=== PATIENT | male | born 1940 | race Caucasian/White ===

== ENCOUNTER 2019-04-21 22:15 | Inpatient (IN) ==
[2019-04-21] MEDS ORDERED: AZITHROMYCIN INJ 500 MG in SODIUM CHLORIDE 0.9% 250 ML IV STA (22:42)
[2019-04-21] MEDS ORDERED: methylPREDNISolone SOD SUC 125 MG/2 ML VIAL IV STA (22:42)
[2019-04-21] MEDS ORDERED: ONDANSETRON 4 MG/2 ML VIAL IV STA (22:42)
[2019-04-21] MEDS ORDERED: cefTRIAXone 1,000 MG in SODIUM CHLORIDE 0.9% 100 ML IV STA (22:42)
[2019-04-21] MEDS ORDERED: FUROSEMIDE 40 MG/4 ML VIAL IV STA (22:53)
[2019-04-21] MEDS ORDERED: ALBUTEROL 2.5 MG/3 ML NEB RESP TX SCH (23:00)
[2019-04-22 00:11] LABS: Basophils % 0.4 % (0.0-0.8); Eosinophils # 0.1 10*3/uL (0.0-0.87); Eosinophils % 0.5 % (0.00-10.9); Hematocrit 33.7 VOL% (42.0-52.0); Hemoglobin 9.2 GM/DL (14.0-18.0); Immature Granulocytes % 1.7 %; Immature Granulocytes Absolute 0.19 #; Lymphocytes # 1.3 10*3/uL (1.4-4.0); Lymphocytes % 11.3 % (21.2-54.2); Mean Corpuscular HGB Conc 27.3 GM/DL (32-36); Mean Platelet Volume 11.1 FL (9.6-12.0); Neutrophils % 79.1 % (38.7-73.9); Platelet Count 241 T/CUMM (130-400); Red Blood Count 4.06 MC/CUMM (3.8-5.5); Red Cell Distribution Width 17.4 % (9.3-17.3); White Blood Count 11.1 T/CUMM (4-12)
[2019-04-22 00:18] LABS: Alanine Aminotransferase 20 U/L (16-61); Albumin 2.8 G/DL (3.4-5.0); Alkaline Phosphatase 67 U/L (45-117); Aspartate Amino Transferase 30 U/L (0-37); Bilirubin,Total < 0.39 MG/DL (0.2-1.0); Blood Urea Nitrogen 30 MG/DL (7-18); CKMB % 2.1 %; Calcium 8.9 MG/DL (8.5-10.1); Glucose 146 MG/DL (74-106); Osmolality,Calculated 296.7 MOS/KG (273-304); Total Protein 7.1 G/DL (6.4-8.3); Troponin I 0.021 NG/ML (0.00-0.045)
[2019-04-22 00:22] LABS: PT Patient Result 10.8 SECS
[2019-04-22 01:47] LABS: ABG Base Excess 1.4 MMOL/L (-2.5-2.5); ABG HCO3 25.5 MMOL/L (20-26); ABG PO2 68.2 MM HG (80-95); ABG TCO2 31.9 MMOL/L (23-27)
[2019-04-22 01:50] LABS: ABG PCO2 98.3 MM HG (35-48); ABG PH 7.135 (7.35-7.45)
[2019-04-22] MEDS ORDERED: ETOMIDATE 20 MG/10 ML VIAL IV ONE (02:29)
[2019-04-22] MEDS ORDERED: ROCURONIUM 100 MG/10 ML VIAL IV ONE (02:30)
[2019-04-22] MEDS ORDERED: SODIUM CHLORIDE 0.9% 1,000 ML IV STA (02:34)
[2019-04-22] MEDS ORDERED: ROCURONIUM 100 MG/10 ML VIAL IV STA (02:34)
[2019-04-22] MEDS ORDERED: ETOMIDATE 20 MG/10 ML VIAL IV STA (02:34)
[2019-04-22] MEDS ORDERED: NICOTINE 21 MG/24 HR PATCH TRANSDERM PRN (03:11)
[2019-04-22] MEDS ORDERED: GLUCAGON 1 MG VIAL IM PRN (03:11)
[2019-04-22] MEDS ORDERED: ONDANSETRON 4 MG/2 ML VIAL IV PRN (03:11)
[2019-04-22] MEDS ORDERED: MORPHINE 4 MG/1 ML VIAL IV PRN (03:11)
[2019-04-22] MEDS ORDERED: DEXTROSE 50% 25 GM/50 ML VIAL IV PRN (03:11)
[2019-04-22] MEDS ORDERED: ACETAMINOPHEN 325 MG TABLET PO PRN (03:11)
[2019-04-22 03:36] LABS: Allen Test Positive; Pt O2 Delivery Device Ventilator
[2019-04-22 03:39] LABS: ABG Base Excess 2.8 MMOL/L (-2.5-2.5); ABG Oxygen Saturation 99.8 % (95-100); ABG PCO2 61.9 MM HG (35-48); ABG TCO2 28.4 MMOL/L (23-27)
[2019-04-22] MEDS: PROPOFOL 1,000 MG/100 ML BOTTLE IV SCH ×2 (04:45→17:30)
[2019-04-22] MEDS ORDERED: NOREPINEPHRINE 8 MG in SODIUM CHLORIDE 0.9% 242 ML IV PRN (05:34)
[2019-04-22] MEDS ORDERED: NOREPINEPHRINE 4 MG/4 ML VIAL IV ONE (05:35)
[2019-04-22 06:08] LABS: ABG Base Excess 2.6 MMOL/L (-2.5-2.5); ABG HCO3 26.6 MMOL/L (20-26); ABG PCO2 61.1 MM HG (35-48); ABG TCO2 28.2 MMOL/L (23-27); Allen Test Positive; Pt O2 Delivery Device Ventilator
[2019-04-22 06:09] LABS: Risk Ratio 2.84; Thyroid Stimulating Hormone 0.507 uIU/ml (0.358-3.74)
[2019-04-22] MEDS: PIPERACILLIN/TAZOBACTAM 3,375 MG in SODIUM CHLORIDE 0.9% 100 ML IV SCH ×3 (07:07→19:57)
[2019-04-22] MEDS: ALBUTEROL/IPRATROPIUM 3 ML NEB RESP TX SCH ×3 (07:40→19:24)
[2019-04-22] MEDS ORDERED: cefTRIAXone 1,000 MG in SYRINGE 1 EACH IV SCH (09:00)
[2019-04-22 09:03] LABS: ABG Base Excess 3.1 MMOL/L (-2.5-2.5); ABG HCO3 27.2 MMOL/L (20-26); ABG Oxygen Saturation 97.2 % (95-100); ABG PH 7.359 (7.35-7.45); ABG PO2 92.3 MM HG (80-95); ABG TCO2 27.2 MMOL/L (23-27); Pt O2 Delivery Device Ventilator
[2019-04-22] MEDS: LANSOPRAZOLE ODT 30 MG TABLET PER TUBE SCH (11:00)
[2019-04-22] MEDS: methylPREDNISolone SOD SUC 40 MG/1 ML VIAL IV SCH ×2 (11:00→19:57)
[2019-04-22] MEDS: DILTIAZEM 60 MG TABLET PO SCH ×2 (11:00→22:54)
[2019-04-22] MEDS: FUROSEMIDE 40 MG/4 ML VIAL IV SCH ×2 (11:00→19:57)
[2019-04-22] MEDS: ENOXAPARIN 40 MG/0.4 ML SYRINGE SUBCUT SCH (11:01)
[2019-04-22] MEDS: VANCOMYCIN INJ 2,000 MG in SODIUM CHLORIDE 0.9% 500 ML IV SCH (11:01)
[2019-04-22] MEDS: INSULIN REGULAR 100 UNIT/ML SUBCUT SCH ×4 (11:03→21:40)
[2019-04-22 12:08] LABS: Apearance,Urine CLOUDY (Clear); Bilirubin,Urine Negative (Negative); Blood, Urine Small mg/dL (Negative); Glucose,Urine (UA) Negative (Negative); Ketones,Urine Negative (Negative); Mucus,Urine Occasional /LPF (Occasional); Nitrite,Urine Negative (Negative); Protein,Urine Negative; RBC,Urine 6 /HPF (0-4); Urine Color Yellow (Yellow); Urine Specific Gravity 1.017 (1.001-1.035); Urine Urobilinogen < 2.0 EU/DL (0.2-1.0); WBC,Urine 4 /HPF (0-6)
[2019-04-22] MEDS ORDERED: DIAZEPAM 5 MG TABLET PER TUBE SCH (12:30)
[2019-04-22] MEDS: DESITIN 4OZ/NYSTATIN 15 GRAM MIXTURE PASTE TOP SCH ×2 (19:47→22:38)
[2019-04-22] MEDS: DIAZEPAM 5 MG TABLET PER TUBE SCH ×2 (19:48→22:55)
[2019-04-22] MEDS: AZITHROMYCIN INJ 500 MG in SODIUM CHLORIDE 0.9% 250 ML IV SCH (22:50)
[2019-04-23] MEDS: ALBUTEROL/IPRATROPIUM 3 ML NEB RESP TX SCH ×4 (00:05→20:05)
[2019-04-23] MEDS: INSULIN REGULAR 100 UNIT/ML SUBCUT SCH ×6 (01:14→20:52)
[2019-04-23] MEDS: PIPERACILLIN/TAZOBACTAM 3,375 MG in SODIUM CHLORIDE 0.9% 100 ML IV SCH ×4 (01:30→17:13)
[2019-04-23] MEDS: methylPREDNISolone SOD SUC 40 MG/1 ML VIAL IV SCH ×3 (02:12→17:13)
[2019-04-23 03:35] LABS: ABG Base Excess 7.2 MMOL/L (-2.5-2.5); ABG Oxygen Saturation 98.6 % (95-100); ABG PCO2 44.5 MM HG (35-48); ABG PH 7.462 (7.35-7.45); ABG TCO2 29.4 MMOL/L (23-27); Allen Test Positive; Pt O2 Delivery Device Ventilator
[2019-04-23 04:36] LABS: Basophils % 0.1 % (0.0-0.8); Hemoglobin 8.8 GM/DL (14.0-18.0); Immature Granulocytes % 0.8 %; Lymphocytes # 0.8 10*3/uL (1.4-4.0); Lymphocytes % 6.5 % (21.2-54.2); Mean Corpuscular HGB Conc 29.3 GM/DL (32-36); Mean Corpuscular Volume 78.3 FL (87-102); Mean Platelet Volume 11.4 FL (9.6-12.0); Monocytes % 3.3 % (1.7-12.7); Neutrophils % 89.3 % (38.7-73.9); Platelet Count 285 T/CUMM (130-400); Red Blood Count 3.83 MC/CUMM (3.8-5.5); Red Cell Distribution Width 17.7 % (9.3-17.3); White Blood Count 12.5 T/CUMM (4-12)
[2019-04-23] MEDS: DIAZEPAM 5 MG TABLET PER TUBE SCH ×4 (04:52→20:52)
[2019-04-23 05:02] LABS: Calcium 8.1 MG/DL (8.5-10.1); Osmolality,Calculated 301.7 MOS/KG (273-304)
[2019-04-23 05:07] LABS: Albumin 2.3 G/DL (3.4-5.0); Bilirubin,Total 0.7 MG/DL (0.2-1.0); Calcium 8.4 MG/DL (8.5-10.1); Total Protein 6.5 G/DL (6.4-8.3)
[2019-04-23] MEDS: PROPOFOL 1,000 MG/100 ML BOTTLE IV SCH ×4 (06:30→23:13)
[2019-04-23] MEDS ORDERED: DEXTROSE 50% 25 GM/50 ML VIAL IV PRN (07:29)
[2019-04-23] MEDS ORDERED: GLUCAGON 1 MG VIAL IM PRN (07:29)
[2019-04-23] MEDS: ENOXAPARIN 40 MG/0.4 ML SYRINGE SUBCUT SCH (09:27)
[2019-04-23] MEDS: DILTIAZEM 60 MG TABLET PO SCH ×2 (09:28→20:52)
[2019-04-23] MEDS: FUROSEMIDE 40 MG/4 ML VIAL IV SCH ×2 (09:28→17:12)
[2019-04-23] MEDS: LANSOPRAZOLE ODT 30 MG TABLET PER TUBE SCH (09:28)
[2019-04-23] MEDS: VANCOMYCIN INJ 2,000 MG in SODIUM CHLORIDE 0.9% 500 ML IV SCH ×2 (11:30)
[2019-04-23] MEDS: DESITIN 4OZ/NYSTATIN 15 GRAM MIXTURE PASTE TOP SCH ×2 (14:30→21:42)
[2019-04-23] MEDS: AZITHROMYCIN INJ 500 MG in SODIUM CHLORIDE 0.9% 250 ML IV SCH (20:52)
[2019-04-24] MEDS: ALBUTEROL/IPRATROPIUM 3 ML NEB RESP TX SCH ×4 (00:22→19:33)
[2019-04-24] MEDS: INSULIN REGULAR 100 UNIT/ML SUBCUT SCH ×6 (00:58→20:57)
[2019-04-24] MEDS: methylPREDNISolone SOD SUC 40 MG/1 ML VIAL IV SCH ×3 (00:58→19:35)
[2019-04-24] MEDS: PIPERACILLIN/TAZOBACTAM 3,375 MG in SODIUM CHLORIDE 0.9% 100 ML IV SCH ×3 (00:58→17:30)
[2019-04-24 03:36] LABS: ABG Base Excess 9.6 MMOL/L (-2.5-2.5); ABG HCO3 33.5 MMOL/L (20-26); ABG Oxygen Saturation 97.4 % (95-100); ABG PCO2 42.8 MM HG (35-48); ABG PH 7.511 (7.35-7.45); ABG PO2 104.5 MM HG (80-95); ABG TCO2 34.8 MMOL/L (23-27); Allen Test Positive; Pt O2 Delivery Device Ventilator
[2019-04-24] MEDS: PROPOFOL 1,000 MG/100 ML BOTTLE IV SCH (04:31)
[2019-04-24] MEDS: DIAZEPAM 5 MG TABLET PER TUBE SCH ×4 (04:31→21:07)
[2019-04-24 04:39] LABS: Basophils % 0.1 % (0.0-0.8); Hematocrit 29.1 VOL% (42.0-52.0); Hemoglobin 8.3 GM/DL (14.0-18.0); Immature Granulocytes % 0.5 %; Immature Granulocytes Absolute 0.05 #; Lymphocytes # 1.1 10*3/uL (1.4-4.0); Mean Corpuscular HGB Conc 28.5 GM/DL (32-36); Mean Corpuscular Volume 78.6 FL (87-102); Mean Platelet Volume 10.9 FL (9.6-12.0); Monocytes % 7.9 % (1.7-12.7); Neutrophils % 80.5 % (38.7-73.9); Platelet Count 254 T/CUMM (130-400); Red Cell Distribution Width 17.7 % (9.3-17.3); White Blood Count 9.7 T/CUMM (4-12)
[2019-04-24 04:56] LABS: Calcium 8.3 MG/DL (8.5-10.1); Osmolality,Calculated 307.3 MOS/KG (273-304)
[2019-04-24 05:05] LABS: Anisocytosis 1+; Hypochromasia 1+; Microcytosis 1+; Platelet Estimate Adequate
[2019-04-24] MEDS: VANCOMYCIN INJ 2,000 MG in SODIUM CHLORIDE 0.9% 500 ML IV SCH (11:24)
[2019-04-24] MEDS: ENOXAPARIN 40 MG/0.4 ML SYRINGE SUBCUT SCH (11:24)
[2019-04-24] MEDS: DILTIAZEM 60 MG TABLET PO SCH ×2 (11:29→21:06)
[2019-04-24] MEDS: LANSOPRAZOLE ODT 30 MG TABLET PER TUBE SCH (11:29)
[2019-04-24] MEDS: DESITIN 4OZ/NYSTATIN 15 GRAM MIXTURE PASTE TOP SCH (11:29)
[2019-04-25] MEDS: INSULIN REGULAR 100 UNIT/ML SUBCUT SCH ×6 (00:28→20:39)
[2019-04-25] MEDS: PIPERACILLIN/TAZOBACTAM 3,375 MG in SODIUM CHLORIDE 0.9% 100 ML IV SCH ×3 (00:29→17:01)
[2019-04-25] MEDS: methylPREDNISolone SOD SUC 40 MG/1 ML VIAL IV SCH ×3 (00:29→17:02)
[2019-04-25] MEDS: ALBUTEROL/IPRATROPIUM 3 ML NEB RESP TX SCH ×4 (01:05→19:30)
[2019-04-25 03:59] LABS: ABG Base Excess 8.8 MMOL/L (-2.5-2.5); ABG HCO3 33.8 MMOL/L (20-26); ABG Oxygen Saturation 94.5 % (95-100); ABG PCO2 49.7 MM HG (35-48); ABG PH 7.451 (7.35-7.45); ABG PO2 82.3 MM HG (80-95); ABG TCO2 35.4 MMOL/L (23-27); Allen Test Positive; Pt O2 Delivery Device Ventilator
[2019-04-25] MEDS: DESITIN 4OZ/NYSTATIN 15 GRAM MIXTURE PASTE TOP SCH ×3 (04:32→20:43)
[2019-04-25] MEDS: DIAZEPAM 5 MG TABLET PER TUBE SCH ×2 (04:47→08:52)
[2019-04-25] MEDS: PROPOFOL 1,000 MG/100 ML BOTTLE IV SCH ×2 (05:04→11:09)
[2019-04-25] MEDS: VANCOMYCIN INJ 2,000 MG in SODIUM CHLORIDE 0.9% 500 ML IV SCH (05:11)
[2019-04-25 06:01] LABS: Calcium 8.4 MG/DL (8.5-10.1); Osmolality,Calculated 311.3 MOS/KG (273-304); Prealbumin 16.7 MG/DL (20-40)
[2019-04-25 06:15] LABS: Basophils % 0.1 % (0.0-0.8); Hematocrit 30.9 VOL% (42.0-52.0); Immature Granulocytes % 1.9 %; Immature Granulocytes Absolute 0.16 #; Lymphocytes # 0.4 10*3/uL (1.4-4.0); Lymphocytes % 5.2 % (21.2-54.2); Mean Corpuscular HGB Conc 28.5 GM/DL (32-36); Mean Corpuscular Volume 80.1 FL (87-102); Mean Platelet Volume 11.6 FL (9.6-12.0); Monocytes % 2.9 % (1.7-12.7); Neutrophils % 89.9 % (38.7-73.9); Platelet Count 264 T/CUMM (130-400); Red Blood Count 3.86 MC/CUMM (3.8-5.5); Red Cell Distribution Width 18.1 % (9.3-17.3); White Blood Count 8.5 T/CUMM (4-12)
[2019-04-25 06:18] LABS: Hemoglobin 8.8 GM/DL (14.0-18.0)
[2019-04-25 06:20] LABS: Platelet Estimate Adequate; Polychromasia Few
[2019-04-25] MEDS ORDERED: LIDOCAINE 1% 20 ML VIAL MISC INJ ONE (07:30)
[2019-04-25] MEDS ORDERED: LIDOCAINE 2% 20 ML VIAL RESP TX ONE (07:30)
[2019-04-25] MEDS ORDERED: MIDAZOLAM 2 MG/2 ML VIAL IV ONE (07:30)
[2019-04-25] MEDS ORDERED: MIDAZOLAM 2 MG/2 ML VIAL ONE (07:33)
[2019-04-25] MEDS: ENOXAPARIN 40 MG/0.4 ML SYRINGE SUBCUT SCH (08:30)
[2019-04-25] MEDS: LANSOPRAZOLE ODT 30 MG TABLET PER TUBE SCH (08:31)
[2019-04-25] MEDS: DILTIAZEM 60 MG TABLET PO SCH ×2 (08:31→20:38)
[2019-04-25] MEDS ORDERED: FUROSEMIDE 20 MG TABLET PO PRN (15:05)
[2019-04-25] MEDS: APIXABAN 2.5 MG TABLET PO SCH (20:38)
[2019-04-26] MEDS: ALBUTEROL/IPRATROPIUM 3 ML NEB RESP TX SCH ×4 (00:10→19:40)
[2019-04-26] MEDS: INSULIN REGULAR 100 UNIT/ML SUBCUT SCH ×6 (00:58→21:05)
[2019-04-26] MEDS: methylPREDNISolone SOD SUC 40 MG/1 ML VIAL IV SCH ×3 (00:59→17:07)
[2019-04-26] MEDS: PIPERACILLIN/TAZOBACTAM 3,375 MG in SODIUM CHLORIDE 0.9% 100 ML IV SCH ×3 (01:05→17:09)
[2019-04-26 04:27] LABS: ABG Base Excess 6.3 MMOL/L (-2.5-2.5); ABG HCO3 29.8 MMOL/L (20-26); ABG Oxygen Saturation 82.8 % (95-100); ABG PCO2 49.4 MM HG (35-48); ABG PO2 52.3 MM HG (80-95); ABG TCO2 28.5 MMOL/L (23-27)
[2019-04-26] MEDS: VANCOMYCIN INJ 2,000 MG in SODIUM CHLORIDE 0.9% 500 ML IV SCH ×2 (04:58→22:35)
[2019-04-26 05:42] LABS: Calcium 8.6 MG/DL (8.5-10.1); Osmolality,Calculated 302.6 MOS/KG (273-304)
[2019-04-26 06:18] LABS: Basophils % 0.2 % (0.0-0.8); Hematocrit 30.7 VOL% (42.0-52.0); Hemoglobin 8.7 GM/DL (14.0-18.0); Immature Granulocytes % 2.3 %; Immature Granulocytes Absolute 0.23 #; Lymphocytes # 0.6 10*3/uL (1.4-4.0); Lymphocytes % 5.9 % (21.2-54.2); Mean Corpuscular HGB Conc 28.3 GM/DL (32-36); Mean Corpuscular Volume 80.4 FL (87-102); Mean Platelet Volume 11.5 FL (9.6-12.0); Monocytes % 4.9 % (1.7-12.7); Neutrophils % 86.7 % (38.7-73.9); Platelet Count 261 T/CUMM (130-400); Red Blood Count 3.82 MC/CUMM (3.8-5.5); Red Cell Distribution Width 17.7 % (9.3-17.3); White Blood Count 10.1 T/CUMM (4-12)
[2019-04-26 06:20] LABS: Lymphocytes 4 % (20-55); Segmented Neutrophils 93 % (50-85); Total Cells Counted 100
[2019-04-26 06:21] LABS: Hypochromasia 1+; Platelet Estimate Adequate
[2019-04-26] MEDS: DILTIAZEM 60 MG TABLET PO SCH ×2 (08:42→21:08)
[2019-04-26] MEDS: APIXABAN 2.5 MG TABLET PO SCH ×2 (08:43→21:08)
[2019-04-26] MEDS: LISINOPRIL 20 MG TABLET PO SCH (08:43)
[2019-04-26] MEDS: LANSOPRAZOLE ODT 30 MG TABLET PER TUBE SCH (08:43)
[2019-04-26] MEDS: DESITIN 4OZ/NYSTATIN 15 GRAM MIXTURE PASTE TOP SCH ×2 (09:30→21:09)
[2019-04-27] MEDS: INSULIN REGULAR 100 UNIT/ML SUBCUT SCH ×7 (00:26→23:31)
[2019-04-27] MEDS: ALBUTEROL/IPRATROPIUM 3 ML NEB RESP TX SCH ×4 (00:50→18:57)
[2019-04-27] MEDS: methylPREDNISolone SOD SUC 40 MG/1 ML VIAL IV SCH ×3 (01:38→16:21)
[2019-04-27] MEDS: PIPERACILLIN/TAZOBACTAM 3,375 MG in SODIUM CHLORIDE 0.9% 100 ML IV SCH ×2 (01:40→08:04)
[2019-04-27 04:45] LABS: ABG Base Excess 4.1 MMOL/L (-2.5-2.5); ABG HCO3 27.9 MMOL/L (20-26); ABG Oxygen Saturation 86.1 % (95-100); ABG PCO2 49.3 MM HG (35-48); ABG PO2 56.2 MM HG (80-95); ABG TCO2 27.4 MMOL/L (23-27); Allen Test Positive
[2019-04-27 06:14] LABS: Calcium 8.8 MG/DL (8.5-10.1); Osmolality,Calculated 300.8 MOS/KG (273-304)
[2019-04-27 06:21] LABS: Basophils % 0.2 % (0.0-0.8); Hematocrit 32.6 VOL% (42.0-52.0); Immature Granulocytes % 4.9 %; Immature Granulocytes Absolute 0.65 #; Lymphocytes # 0.7 10*3/uL (1.4-4.0); Lymphocytes % 5.5 % (21.2-54.2); Mean Corpuscular HGB Conc 28.2 GM/DL (32-36); Mean Corpuscular Volume 80.1 FL (87-102); Mean Platelet Volume 11.4 FL (9.6-12.0); Monocytes % 3.1 % (1.7-12.7); Neutrophils % 86.3 % (38.7-73.9); Platelet Count 270 T/CUMM (130-400); Red Blood Count 4.07 MC/CUMM (3.8-5.5); Red Cell Distribution Width 17.7 % (9.3-17.3); White Blood Count 13.4 T/CUMM (4-12)
[2019-04-27 06:22] LABS: Hemoglobin 9.2 GM/DL (14.0-18.0)
[2019-04-27 06:31] LABS: Lymphocytes 5 % (20-55); Segmented Neutrophils 95 % (50-85); Total Cells Counted 100
[2019-04-27 06:32] LABS: Hypochromasia Slight; Platelet Estimate Normal; Polychromasia Few
[2019-04-27] MEDS: DILTIAZEM 60 MG TABLET PO SCH ×2 (08:04→23:27)
[2019-04-27] MEDS: LANSOPRAZOLE ODT 30 MG TABLET PER TUBE SCH (08:04)
[2019-04-27] MEDS: APIXABAN 2.5 MG TABLET PO SCH ×2 (08:04→23:26)
[2019-04-27] MEDS: LISINOPRIL 20 MG TABLET PO SCH (08:05)
[2019-04-27] MEDS: DESITIN 4OZ/NYSTATIN 15 GRAM MIXTURE PASTE TOP SCH (08:05)
[2019-04-27] MEDS: VANCOMYCIN INJ 2,000 MG in SODIUM CHLORIDE 0.9% 500 ML IV SCH (16:21)
[2019-04-27] MEDS: INSULIN GLARGINE 100 UNIT/ML SUBCUT SCH (23:27)
[2019-04-28] MEDS: ALBUTEROL/IPRATROPIUM 3 ML NEB RESP TX SCH ×4 (00:43→18:54)
[2019-04-28] MEDS: DESITIN 4OZ/NYSTATIN 15 GRAM MIXTURE PASTE TOP SCH ×3 (01:33→22:25)
[2019-04-28] MEDS: methylPREDNISolone SOD SUC 40 MG/1 ML VIAL IV SCH ×3 (02:29→16:31)
[2019-04-28] MEDS: INSULIN REGULAR 100 UNIT/ML SUBCUT SCH ×5 (04:21→22:24)
[2019-04-28 07:47] LABS: Basophils % 0.3 % (0.0-0.8); Hematocrit 34.3 VOL% (42.0-52.0); Immature Granulocytes % 4.6 %; Immature Granulocytes Absolute 0.67 #; Lymphocytes # 0.8 10*3/uL (1.4-4.0); Lymphocytes % 5.1 % (21.2-54.2); Mean Corpuscular Volume 80.3 FL (87-102); Mean Platelet Volume 11.8 FL (9.6-12.0); Monocytes % 2.8 % (1.7-12.7); NRBC # 0.04 10*3/uL; Neutrophils % 87.2 % (38.7-73.9); Platelet Count 269 T/CUMM (130-400); Red Blood Count 4.27 MC/CUMM (3.8-5.5); Red Cell Distribution Width 17.8 % (9.3-17.3); White Blood Count 14.6 T/CUMM (4-12)
[2019-04-28 07:48] LABS: Hemoglobin 9.6 GM/DL (14.0-18.0)
[2019-04-28 07:52] LABS: Hypochromasia 1+; Lymphocytes 3 % (20-55); Microcytosis 1+; Myelocytes 1 %; Segmented Neutrophils 93 % (50-85); Total Cells Counted 100
[2019-04-28 07:53] LABS: Platelet Estimate Normal
[2019-04-28 07:59] LABS: Calcium 8.2 MG/DL (8.5-10.1); Osmolality,Calculated 290.4 MOS/KG (273-304)
[2019-04-28] MEDS: APIXABAN 2.5 MG TABLET PO SCH ×2 (08:13→22:23)
[2019-04-28] MEDS: DILTIAZEM 60 MG TABLET PO SCH ×2 (08:13→22:23)
[2019-04-28] MEDS: LISINOPRIL 20 MG TABLET PO SCH (08:13)
[2019-04-28] MEDS: LANSOPRAZOLE ODT 30 MG TABLET PER TUBE SCH (08:14)
[2019-04-28] MEDS ORDERED: VANCOMYCIN INJ 2,000 MG in SODIUM CHLORIDE 0.9% 500 ML IV SCH (16:00)
[2019-04-28] MEDS: INSULIN GLARGINE 100 UNIT/ML SUBCUT SCH (22:23)
[2019-04-29] MEDS: INSULIN REGULAR 100 UNIT/ML SUBCUT SCH ×4 (01:11→11:45)
[2019-04-29] MEDS: methylPREDNISolone SOD SUC 40 MG/1 ML VIAL IV SCH ×2 (01:11→08:31)
[2019-04-29] MEDS: ALBUTEROL/IPRATROPIUM 3 ML NEB RESP TX SCH ×3 (01:29→13:25)
[2019-04-29 05:41] LABS: Basophils % 0.1 % (0.0-0.8); Immature Granulocytes % 4.2 %; Lymphocytes # 0.6 10*3/uL (1.4-4.0); Lymphocytes % 4.4 % (21.2-54.2); Mean Corpuscular HGB Conc 28.7 GM/DL (32-36); Mean Corpuscular Volume 78.8 FL (87-102); Mean Platelet Volume 11.5 FL (9.6-12.0); Monocytes % 3.8 % (1.7-12.7); NRBC # 0.03 10*3/uL; Neutrophils % 87.5 % (38.7-73.9); Platelet Count 293 T/CUMM (130-400); Red Blood Count 4.11 MC/CUMM (3.8-5.5); White Blood Count 14.3 T/CUMM (4-12)
[2019-04-29 06:06] LABS: Hemoglobin 9.3 GM/DL (14.0-18.0)
[2019-04-29 06:09] LABS: Band Neutrophils 1 % (0-10); Calcium 8.2 MG/DL (8.5-10.1); Hypochromasia 1+; Lymphocytes 6 % (20-55); Osmolality,Calculated 291.4 MOS/KG (273-304); Platelet Estimate Adequate; Segmented Neutrophils 90 % (50-85); Total Cells Counted 100
[2019-04-29 06:10] LABS: Microcytosis 1+
[2019-04-29] MEDS: DILTIAZEM 60 MG TABLET PO SCH (08:30)
[2019-04-29] MEDS: LISINOPRIL 20 MG TABLET PO SCH (08:30)
[2019-04-29] MEDS: APIXABAN 2.5 MG TABLET PO SCH (08:31)
[2019-04-29] MEDS: LANSOPRAZOLE ODT 30 MG TABLET PER TUBE SCH (08:31)
[2019-04-29] MEDS: DESITIN 4OZ/NYSTATIN 15 GRAM MIXTURE PASTE TOP SCH (08:33)
[2019-04-29 11:35] VITALS: BP 141/57
== END 2019-04-29 15:14 | disposition home health service (06) | DRG 208 ==
LOC: EDBD → EDUNIT# → N.ED 22:15 → SUATTDRO 04-22 03:11 → N.EDINP 04-22 03:11 → N.ICU 04-22 03:50 → N.5E 04-25 16:15
PROVIDERS: ADMIT Internal Medicine; ATTEND Internal Medicine Nephrology

== ENCOUNTER 2019-09-19 11:39 | Inpatient (IN) ==
[2019-09-19] MEDS ORDERED: ONDANSETRON 4 MG/2 ML VIAL IV STA (12:13)
[2019-09-19] MEDS ORDERED: ASPIRIN 325 MG TABLET PO STA (12:13)
[2019-09-19] MEDS ORDERED: methylPREDNISolone SOD SUC 125 MG/2 ML VIAL IV STA (12:13)
[2019-09-19] MEDS ORDERED: FUROSEMIDE 100 MG/10 ML VIAL IV STA (12:13)
[2019-09-19 12:30] LABS: INR 1.1; PT Patient Result 11.6 SECS (9.6-12.2)
[2019-09-19] MEDS ORDERED: ALBUTEROL 2.5 MG/3 ML NEB RESP TX SCH (12:30)
[2019-09-19 12:49] LABS: Basophils % 0.3 % (0.0-0.8); Eosinophils % 0.4 % (0.00-10.9); Hematocrit 20.6 VOL% (42.0-52.0); Immature Granulocytes Absolute 0.09 #; Lymphocytes # 1.6 10*3/uL (1.4-4.0); Lymphocytes % 16.8 % (21.2-54.2); Mean Corpuscular HGB Conc 26.7 GM/DL (32-36); Monocytes % 7.4 % (1.7-12.7); NRBC # 0.03 10*3/uL; Neutrophils % 74.1 % (38.7-73.9); Platelet Count 264 T/CUMM (130-400); Red Blood Count 2.82 MC/CUMM (3.8-5.5); White Blood Count 9.2 T/CUMM (4-12)
[2019-09-19 12:52] LABS: Alanine Aminotransferase 11 U/L (16-61); Albumin 2.1 G/DL (3.4-5.0); Alkaline Phosphatase 59 U/L (45-117); Aspartate Amino Transferase 7 U/L (0-37); Bilirubin,Total < 0.39 MG/DL (0.2-1.0); Blood Urea Nitrogen 26 MG/DL (7-18); Calcium 8.4 MG/DL (8.5-10.1); Estimated Glom Filtration Rate 76 ML/MIN; Glucose 165 MG/DL (74-106); Hemoglobin 5.5 GM/DL (14.0-18.0); Osmolality,Calculated 291.1 MOS/KG (273-304); Total Protein 5.9 G/DL (6.4-8.3)
[2019-09-19 12:53] LABS: Anisocytosis 1+; Hypochromasia Slight; Platelet Estimate Normal; Polychromasia 1+
[2019-09-19] MEDS ORDERED: PIPERACILLIN/TAZOBACTAM 3,375 MG in SODIUM CHLORIDE 0.9% 100 ML IV STA (12:53)
[2019-09-19 12:57] LABS: ABG Base Excess 7.5 MMOL/L (-2.5-2.5); ABG HCO3 31.3 MMOL/L (20-26); ABG Oxygen Saturation 92.6 % (95-100); ABG PCO2 61.3 MM HG (35-48); ABG PH 7.353 (7.35-7.45); ABG PO2 66.2 MM HG (80-95); ABG TCO2 32.9 MMOL/L (23-27)
[2019-09-19 13:34] LABS: Basophils % 0.4 % (0.0-0.8); Eosinophils % 0.3 % (0.00-10.9); Hematocrit 20.4 VOL% (42.0-52.0); Immature Granulocytes % 1.1 %; Immature Granulocytes Absolute 0.11 #; Lymphocytes # 1.9 10*3/uL (1.4-4.0); Lymphocytes % 19.5 % (21.2-54.2); Mean Corpuscular HGB Conc 26.5 GM/DL (32-36); Mean Corpuscular Volume 74.7 FL (87-102); Mean Platelet Volume 10.6 FL (9.6-12.0); Monocytes % 7.6 % (1.7-12.7); NRBC # 0.02 10*3/uL; Neutrophils % 71.1 % (38.7-73.9); Platelet Count 271 T/CUMM (130-400); Red Blood Count 2.73 MC/CUMM (3.8-5.5); Red Cell Distribution Width 18.3 % (9.3-17.3); White Blood Count 9.8 T/CUMM (4-12)
[2019-09-19 13:37] LABS: Hemoglobin 5.4 GM/DL (14.0-18.0)
[2019-09-19 13:53] LABS: Hypochromasia Slight; Microcytosis Slight
[2019-09-19 13:54] LABS: Ovalocytes Few; Platelet Estimate Normal; Tear Drop Cells Slight
[2019-09-19] MEDS ORDERED: SODIUM CHLORIDE 0.9% 1,000 ML IV PRN ×2 (14:12→14:57)
[2019-09-19] MEDS ORDERED: GLUCAGON 1 MG VIAL IM PRN (14:14)
[2019-09-19] MEDS ORDERED: ONDANSETRON 4 MG/2 ML VIAL IV PRN (14:14)
[2019-09-19] MEDS ORDERED: ACETAMINOPHEN 325 MG TABLET PO PRN (14:14)
[2019-09-19] MEDS ORDERED: DEXTROSE 50% 25 GM/50 ML VIAL IV PRN (14:14)
[2019-09-19] MEDS ORDERED: ALBUTEROL/IPRATROPIUM 3 ML NEB RESP TX PRN (14:19)
[2019-09-19] MEDS ORDERED: ALBUTEROL 2.5 MG/3 ML NEB RESP TX PRN (15:16)
[2019-09-19] MEDS: HYDROCORTISONE 100 MG VIAL IV SCH (16:49)
[2019-09-19] MEDS: BENZONATATE 100 MG CAPSULE PO SCH ×2 (16:49→22:41)
[2019-09-19] MEDS: INSULIN REGULAR 100 UNIT/ML SUBCUT SCH ×2 (16:49→22:40)
[2019-09-19] MEDS: VANCOMYCIN INJ 2,000 MG in SODIUM CHLORIDE 0.9% 500 ML IV SCH (17:38)
[2019-09-19] MEDS: ALBUTEROL 2.5 MG/3 ML NEB RESP TX SCH (19:49)
[2019-09-19] MEDS: PANTOPRAZOLE 40 MG VIAL IV SCH (22:39)
[2019-09-19] MEDS: TAMSULOSIN 0.4 MG CAPSULE PO SCH (22:41)
[2019-09-19] MEDS ORDERED: FUROSEMIDE 40 MG/4 ML VIAL IV ONE (22:57)
[2019-09-20] MEDS: HYDROCORTISONE 100 MG VIAL IV SCH ×3 (01:12→16:42)
[2019-09-20] MEDS: PIPERACILLIN/TAZOBACTAM 3,375 MG in SODIUM CHLORIDE 0.9% 100 ML IV SCH ×3 (01:13→15:09)
[2019-09-20 01:22] LABS: Calcium 8.4 MG/DL (8.5-10.1); Osmolality,Calculated 291.5 MOS/KG (273-304)
[2019-09-20] MEDS: ALBUTEROL 2.5 MG/3 ML NEB RESP TX SCH ×4 (01:40→19:30)
[2019-09-20 02:36] LABS: Apearance,Urine Slightly Hazy (Clear); Bilirubin,Urine Negative (Negative); Blood, Urine Large mg/dL (Negative); Glucose,Urine (UA) 50 mg/dL (Negative); Ketones,Urine Negative (Negative); Mucus,Urine Occasional /LPF (Occasional); Nitrite,Urine Negative (Negative); Protein,Urine 100 MG/DL; RBC,Urine 2505 /HPF (0-4); Urine Color Red (Yellow); Urine Specific Gravity 1.018 (1.001-1.035); Urine Urobilinogen < 2.0 EU/DL (0.2-1.0); WBC,Urine 61 /HPF (0-6)
[2019-09-20] MEDS ORDERED: FUROSEMIDE 40 MG/4 ML VIAL ONE (06:01)
[2019-09-20 08:24] LABS: Basophils % 0.1 % (0.0-0.8); Eosinophils % 0.2 % (0.00-10.9); Hematocrit 27.3 VOL% (42.0-52.0); Immature Granulocytes % 1.7 %; Immature Granulocytes Absolute 0.19 #; Lymphocytes # 0.8 10*3/uL (1.4-4.0); Lymphocytes % 6.7 % (21.2-54.2); Mean Corpuscular HGB Conc 28.6 GM/DL (32-36); Mean Platelet Volume 11.2 FL (9.6-12.0); Monocytes % 4.7 % (1.7-12.7); NRBC # 0.02 10*3/uL; Neutrophils % 86.6 % (38.7-73.9); Platelet Count 250 T/CUMM (130-400); Red Cell Distribution Width 18.7 % (9.3-17.3); White Blood Count 11.2 T/CUMM (4-12)
[2019-09-20 08:25] LABS: Hemoglobin 7.8 GM/DL (14.0-18.0)
[2019-09-20 08:45] LABS: Hypochromasia 1+; Platelet Estimate Adequate
[2019-09-20 08:46] LABS: Microcytosis Slight
[2019-09-20] MEDS ORDERED: PANTOPRAZOLE 40 MG TABLET PO SCH (09:00)
[2019-09-20] MEDS: INSULIN REGULAR 100 UNIT/ML SUBCUT SCH ×4 (09:18→21:34)
[2019-09-20] MEDS: BENZONATATE 100 MG CAPSULE PO SCH ×3 (09:19→21:32)
[2019-09-20] MEDS: PANTOPRAZOLE 40 MG VIAL IV SCH ×2 (09:19→21:31)
[2019-09-20 10:31] LABS: CKMB % 7.1 %
[2019-09-20 10:33] LABS: Troponin I 4.17 NG/ML (0.00-0.045)
[2019-09-20] MEDS: NEBIVOLOL 5 MG TABLET PO SCH (10:42)
[2019-09-20] MEDS: AZITHROMYCIN INJ 500 MG in SODIUM CHLORIDE 0.9% 250 ML IV SCH (13:15)
[2019-09-20 14:10] LABS: Basophils % 0.1 % (0.0-0.8); Hemoglobin 7.6 GM/DL (14.0-18.0); Immature Granulocytes % 1.2 %; Red Blood Count 3.36 MC/CUMM (3.8-5.5)
[2019-09-20 14:33] LABS: Immature Granulocytes Absolute 0.14 #; Lymphocytes # 0.7 10*3/uL (1.4-4.0); Lymphocytes % 5.7 % (21.2-54.2); Mean Corpuscular HGB Conc 28.1 GM/DL (32-36); Mean Corpuscular Volume 80.4 FL (87-102); Mean Platelet Volume 10.7 FL (9.6-12.0); Monocytes % 5.3 % (1.7-12.7); NRBC # 0.04 10*3/uL; Neutrophils % 87.7 % (38.7-73.9); Platelet Count 233 T/CUMM (130-400); Red Cell Distribution Width 18.9 % (9.3-17.3)
[2019-09-20] MEDS ORDERED: SODIUM CHLORIDE 0.9% 1,000 ML IV PRN (15:04)
[2019-09-20] MEDS: ASPIRIN CHEW 81 MG TABLET PO SCH (15:09)
[2019-09-20 15:39] LABS: Microcytosis 1+; Ovalocytes Few; Platelet Estimate Normal
[2019-09-20 15:40] LABS: Hypochromasia 1+; Target Cells Few
[2019-09-20] MEDS: SUCRALFATE 1 GM TABLET PO SCH ×2 (16:42→21:32)
[2019-09-20] MEDS: FUROSEMIDE 40 MG/4 ML VIAL IV SCH (16:42)
[2019-09-20] MEDS: BUDESONIDE 0.5 MG/2 ML NEB RESP TX SCH ×2 (17:37→19:30)
[2019-09-20] MEDS: TAMSULOSIN 0.4 MG CAPSULE PO SCH (21:32)
[2019-09-20] MEDS ORDERED: FUROSEMIDE 40 MG/4 ML VIAL IV ONE (22:57)
[2019-09-21] MEDS: HYDROCORTISONE 100 MG VIAL IV SCH ×3 (00:22→16:46)
[2019-09-21] MEDS: PIPERACILLIN/TAZOBACTAM 3,375 MG in SODIUM CHLORIDE 0.9% 100 ML IV SCH ×4 (00:22→23:15)
[2019-09-21 00:38] LABS: Hematocrit 28.2 VOL% (42.0-52.0); Hemoglobin 8.2 GM/DL (14.0-18.0)
[2019-09-21] MEDS: ALBUTEROL 2.5 MG/3 ML NEB RESP TX SCH ×4 (02:41→20:51)
[2019-09-21] MEDS: VANCOMYCIN INJ 2,000 MG in SODIUM CHLORIDE 0.9% 500 ML IV SCH (04:31)
[2019-09-21 05:58] LABS: Basophils % 0.1 % (0.0-0.8); Hematocrit 29.5 VOL% (42.0-52.0); Hemoglobin 8.7 GM/DL (14.0-18.0); Immature Granulocytes % 1.1 %; Immature Granulocytes Absolute 0.14 #; Lymphocytes # 0.8 10*3/uL (1.4-4.0); Lymphocytes % 6.1 % (21.2-54.2); Mean Corpuscular HGB Conc 29.5 GM/DL (32-36); Mean Corpuscular Volume 78.9 FL (87-102); Mean Platelet Volume 11.3 FL (9.6-12.0); Monocytes % 5.2 % (1.7-12.7); NRBC # 0.03 10*3/uL; Neutrophils % 87.5 % (38.7-73.9); Platelet Count 248 T/CUMM (130-400); Red Blood Count 3.74 MC/CUMM (3.8-5.5); Red Cell Distribution Width 19.9 % (9.3-17.3); White Blood Count 12.2 T/CUMM (4-12)
[2019-09-21 06:28] LABS: % Iron Saturation 5.2 % (18-50); Calcium 8.5 MG/DL (8.5-10.1); Osmolality,Calculated 302.6 MOS/KG (273-304)
[2019-09-21] MEDS: BUDESONIDE 0.5 MG/2 ML NEB RESP TX SCH ×2 (07:42→20:51)
[2019-09-21] MEDS: SUCRALFATE 1 GM TABLET PO SCH ×4 (07:53→21:01)
[2019-09-21] MEDS: INSULIN REGULAR 100 UNIT/ML SUBCUT SCH ×4 (07:53→21:02)
[2019-09-21] MEDS: FUROSEMIDE 40 MG/4 ML VIAL IV SCH ×2 (07:54→16:43)
[2019-09-21] MEDS: BENZONATATE 100 MG CAPSULE PO SCH ×3 (09:23→21:01)
[2019-09-21] MEDS: PANTOPRAZOLE 40 MG VIAL IV SCH ×2 (09:24→21:01)
[2019-09-21] MEDS: NEBIVOLOL 5 MG TABLET PO SCH (09:24)
[2019-09-21] MEDS: ASPIRIN CHEW 81 MG TABLET PO SCH (09:24)
[2019-09-21] MEDS: AZITHROMYCIN INJ 500 MG in SODIUM CHLORIDE 0.9% 250 ML IV SCH (14:26)
[2019-09-21] MEDS: SERTRALINE 25 MG TABLET PO SCH (18:31)
[2019-09-21] MEDS: DILTIAZEM 60 MG TABLET PO SCH (21:01)
[2019-09-21] MEDS: TAMSULOSIN 0.4 MG CAPSULE PO SCH (21:01)
[2019-09-22] MEDS: HYDROCORTISONE 100 MG VIAL IV SCH ×3 (00:16→16:31)
[2019-09-22] MEDS: ALBUTEROL 2.5 MG/3 ML NEB RESP TX SCH ×4 (01:49→20:19)
[2019-09-22] MEDS: VANCOMYCIN INJ 2,000 MG in SODIUM CHLORIDE 0.9% 500 ML IV SCH (05:39)
[2019-09-22 05:51] LABS: Calcium 8.3 MG/DL (8.5-10.1)
[2019-09-22 06:02] LABS: Basophils % 0.1 % (0.0-0.8); Hematocrit 29.4 VOL% (42.0-52.0); Hemoglobin 8.5 GM/DL (14.0-18.0); Immature Granulocytes % 1.7 %; Immature Granulocytes Absolute 0.19 #; Lymphocytes # 0.8 10*3/uL (1.4-4.0); Lymphocytes % 7.1 % (21.2-54.2); Mean Corpuscular HGB Conc 28.9 GM/DL (32-36); Mean Corpuscular Volume 79.5 FL (87-102); Mean Platelet Volume 10.7 FL (9.6-12.0); Monocytes % 5.3 % (1.7-12.7); NRBC # 0.02 10*3/uL; Neutrophils % 85.8 % (38.7-73.9); Platelet Count 228 T/CUMM (130-400); Red Cell Distribution Width 20.9 % (9.3-17.3); White Blood Count 11.3 T/CUMM (4-12)
[2019-09-22 06:16] LABS: Hypochromasia 1+; Platelet Estimate Adequate
[2019-09-22 06:17] LABS: Microcytosis Slight
[2019-09-22] MEDS: PIPERACILLIN/TAZOBACTAM 3,375 MG in SODIUM CHLORIDE 0.9% 100 ML IV SCH ×2 (06:36→16:29)
[2019-09-22] MEDS: BUDESONIDE 0.5 MG/2 ML NEB RESP TX SCH ×2 (08:16→20:18)
[2019-09-22] MEDS: INSULIN REGULAR 100 UNIT/ML SUBCUT SCH ×4 (08:38→23:48)
[2019-09-22] MEDS: FUROSEMIDE 40 MG/4 ML VIAL IV SCH ×2 (08:42→16:29)
[2019-09-22] MEDS: PANTOPRAZOLE 40 MG VIAL IV SCH ×2 (08:45→23:48)
[2019-09-22] MEDS ORDERED: LIDOCAINE 2% 5 ML VIAL ONE (09:00)
[2019-09-22] MEDS ORDERED: ETOMIDATE 20 MG/10 ML VIAL IV ONE (09:00)
[2019-09-22] MEDS ORDERED: propofoL 200 MG/20 ML VIAL IV ONE (09:00)
[2019-09-22] MEDS: LACTATED RINGERS 1,000 ML IV SCH (09:49)
[2019-09-22] MEDS ORDERED: ALBUTEROL/IPRATROPIUM 3 ML NEB RESP TX ONE (10:35)
[2019-09-22] MEDS: SUCRALFATE 1 GM TABLET PO SCH ×4 (13:19→23:47)
[2019-09-22] MEDS: AZITHROMYCIN INJ 500 MG in SODIUM CHLORIDE 0.9% 250 ML IV SCH (13:29)
[2019-09-22] MEDS: DILTIAZEM 60 MG TABLET PO SCH ×2 (13:29→22:45)
[2019-09-22] MEDS: ASPIRIN CHEW 81 MG TABLET PO SCH (13:30)
[2019-09-22] MEDS: SERTRALINE 25 MG TABLET PO SCH (13:30)
[2019-09-22] MEDS: BENZONATATE 100 MG CAPSULE PO SCH ×3 (13:30→23:48)
[2019-09-22] MEDS: NEBIVOLOL 5 MG TABLET PO SCH (13:30)
[2019-09-22] MEDS: FLUCONAZOLE 100 MG TABLET PO SCH (13:30)
[2019-09-22 20:21] LABS: Basophils % 0.2 % (0.0-0.8); White Blood Count 18.4 T/CUMM (4-12)
[2019-09-22 20:42] LABS: Alanine Aminotransferase 17 U/L (16-61); Albumin 1.9 G/DL (3.4-5.0); Alkaline Phosphatase 53 U/L (45-117); Aspartate Amino Transferase 12 U/L (0-37); Blood Urea Nitrogen 41 MG/DL (7-18); Calcium 7.9 MG/DL (8.5-10.1); Estimated Glom Filtration Rate 61 ML/MIN; Glucose 235 MG/DL (74-106); Osmolality,Calculated 305.7 MOS/KG (273-304); Total Protein 6.2 G/DL (6.4-8.3)
[2019-09-22 20:43] LABS: Hematocrit 33.4 VOL% (42.0-52.0); Immature Granulocytes % 5.3 %; Immature Granulocytes Absolute 0.97 #; Lymphocytes # 3.2 10*3/uL (1.4-4.0); Lymphocytes % 17.2 % (21.2-54.2); Mean Corpuscular HGB Conc 28.1 GM/DL (32-36); Mean Corpuscular Volume 80.5 FL (87-102); Mean Platelet Volume 11.1 FL (9.6-12.0); Monocytes % 5.7 % (1.7-12.7); Neutrophils % 71.6 % (38.7-73.9); Platelet Count 297 T/CUMM (130-400); Red Blood Count 4.15 MC/CUMM (3.8-5.5); Red Cell Distribution Width 21.3 % (9.3-17.3)
[2019-09-22 20:46] LABS: Hemoglobin 9.4 GM/DL (14.0-18.0)
[2019-09-22 20:49] LABS: Lymphocytes 13 % (20-55); Segmented Neutrophils 83 % (50-85); Total Cells Counted 100
[2019-09-22 20:50] LABS: Hypochromasia Slight; Microcytosis Slight; Platelet Estimate Normal
[2019-09-22 21:11] LABS: ABG Base Excess 7.7 MMOL/L (-2.5-2.5); ABG HCO3 31.5 MMOL/L (20-26); ABG Oxygen Saturation 98.5 % (95-100); ABG PH 7.309 (7.35-7.45); ABG TCO2 33.4 MMOL/L (23-27)
[2019-09-22 21:16] LABS: ABG PCO2 73.2 MM HG (35-48)
[2019-09-22] MEDS ORDERED: SODIUM CHLORIDE 0.9% 1,000 ML IV ONE (21:27)
[2019-09-22] MEDS ORDERED: fentaNYL INJ 1,250 MCG in SODIUM CHLORIDE 0.9% 225 ML IV PRN (21:37)
[2019-09-22] MEDS: TAMSULOSIN 0.4 MG CAPSULE PO SCH (23:48)
[2019-09-22] MEDS: POTASSIUM CHLORIDE RIDER 10 MEQ in PREMIX 1 EACH IV SCH (23:49)
[2019-09-22] MEDS: MEROPENEM 500 MG in SODIUM CHLORIDE 0.9% 100 ML IV SCH (23:52)
[2019-09-23] MEDS: ALBUTEROL 2.5 MG/3 ML NEB RESP TX SCH ×4 (00:05→20:22)
[2019-09-23] MEDS: POTASSIUM CHLORIDE RIDER 10 MEQ in PREMIX 1 EACH IV SCH ×3 (00:50→02:50)
[2019-09-23] MEDS: HYDROCORTISONE 100 MG VIAL IV SCH ×3 (01:00→16:59)
[2019-09-23] MEDS ORDERED: MIDAZOLAM 100 MG in SODIUM CHLORIDE 0.9% 80 ML IV PRN (01:44)
[2019-09-23 02:10] LABS: ABG Base Excess 8.1 MMOL/L (-2.5-2.5); ABG HCO3 36.8 MMOL/L (20-26); ABG Oxygen Saturation 96.2 % (95-100); ABG PH 7.268 (7.35-7.45); ABG PO2 96.8 MM HG (80-95); ABG TCO2 39.3 MMOL/L (23-27)
[2019-09-23 02:11] LABS: ABG PCO2 82.4 MM HG (35-48)
[2019-09-23] MEDS: MEROPENEM 500 MG in SODIUM CHLORIDE 0.9% 100 ML IV SCH ×4 (03:50→21:31)
[2019-09-23] MEDS: VANCOMYCIN INJ 2,000 MG in SODIUM CHLORIDE 0.9% 500 ML IV SCH (04:01)
[2019-09-23 05:17] LABS: Basophils % 0.1 % (0.0-0.8); Eosinophils % 0.1 % (0.00-10.9); Hemoglobin 8.2 GM/DL (14.0-18.0); Immature Granulocytes % 1.5 %; Immature Granulocytes Absolute 0.15 #; Lymphocytes # 0.6 10*3/uL (1.4-4.0); Lymphocytes % 5.8 % (21.2-54.2); Mean Corpuscular HGB Conc 27.8 GM/DL (32-36); Mean Corpuscular Volume 80.8 FL (87-102); Mean Platelet Volume 11.1 FL (9.6-12.0); Monocytes % 6.4 % (1.7-12.7); NRBC # 0.02 10*3/uL; Neutrophils % 86.1 % (38.7-73.9); Platelet Count 209 T/CUMM (130-400); Red Blood Count 3.65 MC/CUMM (3.8-5.5); Red Cell Distribution Width 21.3 % (9.3-17.3)
[2019-09-23 05:26] LABS: Hematocrit 29.5 VOL% (42.0-52.0)
[2019-09-23 05:36] LABS: Calcium 8.4 MG/DL (8.5-10.1); Osmolality,Calculated 302.8 MOS/KG (273-304)
[2019-09-23 06:21] LABS: Platelet Estimate Adequate
[2019-09-23 06:22] LABS: Hypochromasia Slight
[2019-09-23] MEDS: LACTATED RINGERS 1,000 ML IV SCH (07:02)
[2019-09-23] MEDS: BUDESONIDE 0.5 MG/2 ML NEB RESP TX SCH ×2 (07:56→20:22)
[2019-09-23 08:06] LABS: ABG HCO3 36.1 MMOL/L (20-26); ABG Oxygen Saturation 97.5 % (95-100); ABG PCO2 67.9 MM HG (35-48); ABG PH 7.344 (7.35-7.45); ABG PO2 106.7 MM HG (80-95); ABG TCO2 38.2 MMOL/L (23-27)
[2019-09-23 10:00] LABS: Pt O2 Delivery Device Ventilator
[2019-09-23 10:08] LABS: ABG Base Excess 8.6 MMOL/L (-2.5-2.5); ABG HCO3 32.4 MMOL/L (20-26); ABG Oxygen Saturation 97.2 % (95-100); ABG PCO2 67.2 MM HG (35-48); ABG PO2 94.4 MM HG (80-95); ABG TCO2 33.8 MMOL/L (23-27)
[2019-09-23] MEDS: INSULIN REGULAR 100 UNIT/ML SUBCUT SCH ×4 (10:18→21:38)
[2019-09-23] MEDS: lisinopriL 20 MG TABLET PO SCH (10:35)
[2019-09-23] MEDS: DILTIAZEM 60 MG TABLET PO SCH ×2 (10:35→21:24)
[2019-09-23] MEDS: SUCRALFATE 1 GM TABLET PO SCH ×4 (10:35→21:25)
[2019-09-23] MEDS: ASPIRIN CHEW 81 MG TABLET PO SCH (10:36)
[2019-09-23] MEDS: BENZONATATE 100 MG CAPSULE PO SCH ×3 (10:36→21:25)
[2019-09-23] MEDS: NEBIVOLOL 5 MG TABLET PO SCH (10:36)
[2019-09-23] MEDS: FLUCONAZOLE 100 MG TABLET PO SCH (10:38)
[2019-09-23] MEDS: PANTOPRAZOLE 40 MG VIAL IV SCH ×2 (10:38→21:28)
[2019-09-23] MEDS: SERTRALINE 25 MG TABLET PO SCH (10:38)
[2019-09-23] MEDS: FUROSEMIDE 40 MG/4 ML VIAL IV SCH ×2 (10:53→16:58)
[2019-09-23] MEDS ORDERED: NOREPINEPHRINE 8 MG in SODIUM CHLORIDE 0.9% 242 ML IV PRN (12:08)
[2019-09-23] MEDS: AZITHROMYCIN INJ 500 MG in SODIUM CHLORIDE 0.9% 250 ML IV SCH (15:45)
[2019-09-23] MEDS: TAMSULOSIN 0.4 MG CAPSULE PO SCH (21:25)
[2019-09-24] MEDS: ALBUTEROL 2.5 MG/3 ML NEB RESP TX SCH ×4 (00:30→20:10)
[2019-09-24] MEDS: HYDROCORTISONE 100 MG VIAL IV SCH ×3 (00:55→16:33)
[2019-09-24 03:30] LABS: ABG Base Excess 8.5 MMOL/L (-2.5-2.5); ABG HCO3 35.9 MMOL/L (20-26); ABG PH 7.329 (7.35-7.45); ABG PO2 157.1 MM HG (80-95); ABG TCO2 38.1 MMOL/L (23-27); Allen Test Positive; Pt O2 Delivery Device Ventilator
[2019-09-24 03:34] LABS: ABG PCO2 69.9 MM HG (35-48)
[2019-09-24] MEDS: MEROPENEM 500 MG in SODIUM CHLORIDE 0.9% 100 ML IV SCH ×4 (03:46→21:59)
[2019-09-24 04:29] LABS: Albumin 1.9 G/DL (3.4-5.0); Bilirubin,Total 0.8 MG/DL (0.2-1.0); Calcium 8.5 MG/DL (8.5-10.1); Osmolality,Calculated 308.6 MOS/KG (273-304); Total Protein 5.8 G/DL (6.4-8.3)
[2019-09-24 04:32] LABS: Basophils % 0.1 % (0.0-0.8); Hematocrit 29.5 VOL% (42.0-52.0); Immature Granulocytes % 2.8 %; Immature Granulocytes Absolute 0.29 #; Lymphocytes # 0.7 10*3/uL (1.4-4.0); Mean Corpuscular HGB Conc 28.1 GM/DL (32-36); Mean Corpuscular Volume 81.3 FL (87-102); Mean Platelet Volume 11.7 FL (9.6-12.0); Monocytes % 6.5 % (1.7-12.7); NRBC # 0.03 10*3/uL; Neutrophils % 83.6 % (38.7-73.9); Platelet Count 240 T/CUMM (130-400); Red Blood Count 3.63 MC/CUMM (3.8-5.5); Red Cell Distribution Width 21.7 % (9.3-17.3); White Blood Count 10.4 T/CUMM (4-12)
[2019-09-24 04:36] LABS: Hemoglobin 8.3 GM/DL (14.0-18.0)
[2019-09-24] MEDS: VANCOMYCIN INJ 2,000 MG in SODIUM CHLORIDE 0.9% 500 ML IV SCH (04:37)
[2019-09-24 04:51] LABS: Hypochromasia Slight; Platelet Estimate Normal
[2019-09-24] MEDS: BUDESONIDE 0.5 MG/2 ML NEB RESP TX SCH ×2 (08:12→20:10)
[2019-09-24] MEDS: SUCRALFATE 1 GM TABLET PO SCH ×4 (08:32→21:43)
[2019-09-24] MEDS: INSULIN REGULAR 100 UNIT/ML SUBCUT SCH ×4 (08:32→21:47)
[2019-09-24] MEDS: lisinopriL 20 MG TABLET PO SCH (08:33)
[2019-09-24] MEDS: FLUCONAZOLE 100 MG TABLET PO SCH (08:33)
[2019-09-24] MEDS: ASPIRIN CHEW 81 MG TABLET PO SCH (08:33)
[2019-09-24] MEDS: BENZONATATE 100 MG CAPSULE PO SCH ×3 (08:33→21:45)
[2019-09-24] MEDS: NEBIVOLOL 5 MG TABLET PO SCH (08:33)
[2019-09-24] MEDS: SERTRALINE 25 MG TABLET PO SCH (08:34)
[2019-09-24] MEDS: DILTIAZEM 60 MG TABLET PO SCH ×2 (08:34→21:44)
[2019-09-24] MEDS: FUROSEMIDE 40 MG/4 ML VIAL IV SCH ×2 (08:38→16:31)
[2019-09-24] MEDS: PANTOPRAZOLE 40 MG VIAL IV SCH ×2 (08:46→21:48)
[2019-09-24] MEDS: AZITHROMYCIN INJ 500 MG in SODIUM CHLORIDE 0.9% 250 ML IV SCH (12:08)
[2019-09-24] MEDS ORDERED: POTASSIUM CHLORIDE 20 MEQ TABLET PO ONE (12:13)
[2019-09-24] MEDS: SPIRONOLACTONE 25 MG TABLET PO SCH (12:29)
[2019-09-24] MEDS: TAMSULOSIN 0.4 MG CAPSULE PO SCH (21:43)
[2019-09-25] MEDS: ALBUTEROL 2.5 MG/3 ML NEB RESP TX SCH ×4 (00:52→19:43)
[2019-09-25] MEDS: HYDROCORTISONE 100 MG VIAL IV SCH ×4 (01:00→23:36)
[2019-09-25 03:57] LABS: ABG HCO3 32.7 MMOL/L (20-26); ABG Oxygen Saturation 98.7 % (95-100); ABG PCO2 64.7 MM HG (35-48); ABG PH 7.357 (7.35-7.45); ABG TCO2 33.8 MMOL/L (23-27); Allen Test Positive; Pt O2 Delivery Device Ventilator
[2019-09-25] MEDS: MEROPENEM 500 MG in SODIUM CHLORIDE 0.9% 100 ML IV SCH ×4 (04:20→21:52)
[2019-09-25 05:14] LABS: Albumin 1.9 G/DL (3.4-5.0); Bilirubin,Total 0.7 MG/DL (0.2-1.0); Calcium 8.8 MG/DL (8.5-10.1); Total Protein 5.9 G/DL (6.4-8.3)
[2019-09-25 05:15] LABS: Osmolality,Calculated 321.6 MOS/KG (273-304)
[2019-09-25 05:28] LABS: Basophils % 0.1 % (0.0-0.8); Hematocrit 29.4 VOL% (42.0-52.0); Hemoglobin 8.3 GM/DL (14.0-18.0); Immature Granulocytes % 1.4 %; Immature Granulocytes Absolute 0.14 #; Lymphocytes # 0.7 10*3/uL (1.4-4.0); Lymphocytes % 6.5 % (21.2-54.2); Mean Corpuscular HGB Conc 28.2 GM/DL (32-36); Mean Corpuscular Volume 81.2 FL (87-102); Mean Platelet Volume 11.1 FL (9.6-12.0); Monocytes % 6.5 % (1.7-12.7); Neutrophils % 85.5 % (38.7-73.9); Platelet Count 213 T/CUMM (130-400); Red Blood Count 3.62 MC/CUMM (3.8-5.5); Red Cell Distribution Width 22.2 % (9.3-17.3); White Blood Count 10.1 T/CUMM (4-12)
[2019-09-25] MEDS: VANCOMYCIN INJ 2,000 MG in SODIUM CHLORIDE 0.9% 500 ML IV SCH ×2 (05:31→18:25)
[2019-09-25] MEDS: BUDESONIDE 0.5 MG/2 ML NEB RESP TX SCH ×2 (07:38→19:43)
[2019-09-25] MEDS: INSULIN REGULAR 100 UNIT/ML SUBCUT SCH ×4 (07:38→21:45)
[2019-09-25] MEDS ORDERED: fentaNYL 100 MCG/2 ML VIAL IV ONE (09:12)
[2019-09-25] MEDS ORDERED: MIDAZOLAM 2 MG/2 ML VIAL IV ONE (09:12)
[2019-09-25] MEDS: DILTIAZEM 60 MG TABLET PO SCH ×2 (10:13→21:44)
[2019-09-25] MEDS: lisinopriL 20 MG TABLET PO SCH (10:14)
[2019-09-25] MEDS: BENZONATATE 100 MG CAPSULE PO SCH ×3 (10:14→21:43)
[2019-09-25] MEDS: SERTRALINE 25 MG TABLET PO SCH (10:14)
[2019-09-25] MEDS: FLUCONAZOLE 100 MG TABLET PO SCH (10:14)
[2019-09-25] MEDS: SPIRONOLACTONE 25 MG TABLET PO SCH (10:14)
[2019-09-25] MEDS: NEBIVOLOL 5 MG TABLET PO SCH (10:15)
[2019-09-25] MEDS: ASPIRIN CHEW 81 MG TABLET PO SCH (10:15)
[2019-09-25] MEDS: PANTOPRAZOLE 40 MG VIAL IV SCH ×2 (10:15→21:50)
[2019-09-25] MEDS: FUROSEMIDE 40 MG/4 ML VIAL IV SCH ×2 (10:16→17:09)
[2019-09-25] MEDS: SUCRALFATE 1 GM TABLET PO SCH ×4 (10:17→21:44)
[2019-09-25] MEDS: AZITHROMYCIN INJ 500 MG in SODIUM CHLORIDE 0.9% 250 ML IV SCH (13:21)
[2019-09-25] MEDS: TAMSULOSIN 0.4 MG CAPSULE PO SCH (21:44)
[2019-09-26] MEDS: ALBUTEROL 2.5 MG/3 ML NEB RESP TX SCH ×4 (00:22→19:53)
[2019-09-26 03:39] LABS: Allen Test Positive; Pt O2 Delivery Device Ventilator
[2019-09-26 03:42] LABS: ABG Base Excess 11.6 MMOL/L (-2.5-2.5); ABG HCO3 37.6 MMOL/L (20-26); ABG Oxygen Saturation 96.6 % (95-100); ABG PH 7.422 (7.35-7.45); ABG TCO2 39.4 MMOL/L (23-27)
[2019-09-26] MEDS: MEROPENEM 500 MG in SODIUM CHLORIDE 0.9% 100 ML IV SCH ×4 (04:29→22:06)
[2019-09-26 05:40] LABS: Bilirubin,Total 0.7 MG/DL (0.2-1.0); Calcium 8.8 MG/DL (8.5-10.1)
[2019-09-26 05:43] LABS: Basophils % 0.1 % (0.0-0.8); Immature Granulocytes % 2.3 %; Immature Granulocytes Absolute 0.21 #; Lymphocytes # 0.5 10*3/uL (1.4-4.0); Mean Corpuscular HGB Conc 28.1 GM/DL (32-36); Mean Corpuscular Volume 80.9 FL (87-102); Mean Platelet Volume 10.9 FL (9.6-12.0); Monocytes % 5.5 % (1.7-12.7); NRBC # 0.02 10*3/uL; Neutrophils % 86.1 % (38.7-73.9); Platelet Count 210 T/CUMM (130-400); Red Blood Count 3.83 MC/CUMM (3.8-5.5); Red Cell Distribution Width 22.1 % (9.3-17.3); White Blood Count 9.1 T/CUMM (4-12)
[2019-09-26 05:46] LABS: Hemoglobin 8.7 GM/DL (14.0-18.0)
[2019-09-26] MEDS: lisinopriL 20 MG TABLET PO SCH (09:02)
[2019-09-26] MEDS: NEBIVOLOL 5 MG TABLET PO SCH (09:02)
[2019-09-26] MEDS: FLUCONAZOLE 100 MG TABLET PO SCH (09:03)
[2019-09-26] MEDS: SUCRALFATE 1 GM TABLET PO SCH ×4 (09:03→20:06)
[2019-09-26] MEDS: DILTIAZEM 60 MG TABLET PO SCH ×2 (09:03→20:05)
[2019-09-26] MEDS: FUROSEMIDE 40 MG/4 ML VIAL IV SCH ×2 (09:04→17:00)
[2019-09-26] MEDS: HYDROCORTISONE 100 MG VIAL IV SCH ×2 (09:06→18:43)
[2019-09-26] MEDS: PANTOPRAZOLE 40 MG VIAL IV SCH ×2 (09:08→20:06)
[2019-09-26] MEDS: SPIRONOLACTONE 25 MG TABLET PO SCH (09:14)
[2019-09-26] MEDS: BENZONATATE 100 MG CAPSULE PO SCH (09:14)
[2019-09-26] MEDS: INSULIN REGULAR 100 UNIT/ML SUBCUT SCH ×4 (09:14→20:06)
[2019-09-26] MEDS: ASPIRIN CHEW 81 MG TABLET PO SCH (09:14)
[2019-09-26] MEDS: SERTRALINE 25 MG TABLET PO SCH (09:14)
[2019-09-26] MEDS: BUDESONIDE 0.5 MG/2 ML NEB RESP TX SCH ×2 (09:18→19:53)
[2019-09-26] MEDS ORDERED: FUROSEMIDE 40 MG/4 ML VIAL IV ONE (11:07)
[2019-09-26] MEDS: DEXTROSE 5% 1,000 ML IV SCH (13:30)
[2019-09-26] MEDS: AZITHROMYCIN INJ 500 MG in SODIUM CHLORIDE 0.9% 250 ML IV SCH (13:45)
[2019-09-26 14:02] LABS: ABG Base Excess 12.6 MMOL/L (-2.5-2.5); ABG HCO3 36.3 MMOL/L (20-26); ABG Oxygen Saturation 94.1 % (95-100); ABG PCO2 60.8 MM HG (35-48); ABG PH 7.419 (7.35-7.45); ABG PO2 72.9 MM HG (80-95); ABG TCO2 36.2 MMOL/L (23-27)
[2019-09-26] MEDS: TAMSULOSIN 0.4 MG CAPSULE PO SCH (20:06)
[2019-09-26] MEDS: ATORVASTATIN 20 MG TABLET PO SCH (20:06)
[2019-09-27] MEDS: HYDROCORTISONE 100 MG VIAL IV SCH ×3 (00:21→17:23)
[2019-09-27] MEDS: ALBUTEROL 2.5 MG/3 ML NEB RESP TX SCH ×4 (01:05→19:53)
[2019-09-27] MEDS: MEROPENEM 500 MG in SODIUM CHLORIDE 0.9% 100 ML IV SCH ×4 (04:01→22:40)
[2019-09-27] MEDS: VANCOMYCIN INJ 2,000 MG in SODIUM CHLORIDE 0.9% 500 ML IV SCH (04:34)
[2019-09-27 05:16] LABS: Calcium 8.2 MG/DL (8.5-10.1); Osmolality,Calculated 323.3 MOS/KG (273-304); Risk Ratio 3.11; VLDL CHOLESTEROL 19.6 MG/DL
[2019-09-27 05:28] LABS: Albumin 1.8 G/DL (3.4-5.0); Bilirubin,Total 0.5 MG/DL (0.2-1.0); Calcium 8.4 MG/DL (8.5-10.1); Total Protein 5.3 G/DL (6.4-8.3)
[2019-09-27 05:49] LABS: Basophils % 0.1 % (0.0-0.8); Hematocrit 27.7 VOL% (42.0-52.0); Immature Granulocytes % 1.6 %; Immature Granulocytes Absolute 0.15 #; Lymphocytes # 0.5 10*3/uL (1.4-4.0); Lymphocytes % 4.8 % (21.2-54.2); Mean Corpuscular HGB Conc 28.9 GM/DL (32-36); Mean Corpuscular Volume 79.4 FL (87-102); Mean Platelet Volume 11.4 FL (9.6-12.0); Monocytes % 6.1 % (1.7-12.7); NRBC # 0.02 10*3/uL; Neutrophils % 87.4 % (38.7-73.9); Platelet Count 184 T/CUMM (130-400); Red Blood Count 3.49 MC/CUMM (3.8-5.5); Red Cell Distribution Width 22.2 % (9.3-17.3); White Blood Count 9.5 T/CUMM (4-12)
[2019-09-27 05:58] LABS: Hypochromasia 1+; Lymphocytes 2 % (20-55); Platelet Estimate Adequate; Segmented Neutrophils 94 % (50-85); Total Cells Counted 100
[2019-09-27] MEDS: POTASSIUM CHLORIDE 20 MEQ TABLET PO PRN ×6 (06:20→22:37)
[2019-09-27] MEDS: BUDESONIDE 0.5 MG/2 ML NEB RESP TX SCH ×2 (07:50→19:53)
[2019-09-27] MEDS: INSULIN REGULAR 100 UNIT/ML SUBCUT SCH ×4 (08:19→21:24)
[2019-09-27] MEDS: DILTIAZEM 60 MG TABLET PO SCH ×2 (08:19→20:28)
[2019-09-27] MEDS: FLUCONAZOLE 100 MG TABLET PO SCH (08:19)
[2019-09-27] MEDS: lisinopriL 20 MG TABLET PO SCH (08:20)
[2019-09-27] MEDS: PANTOPRAZOLE 40 MG VIAL IV SCH ×2 (08:20→20:30)
[2019-09-27] MEDS: NEBIVOLOL 5 MG TABLET PO SCH (08:20)
[2019-09-27] MEDS: SUCRALFATE 1 GM TABLET PO SCH ×4 (08:20→20:28)
[2019-09-27] MEDS: SERTRALINE 25 MG TABLET PO SCH (08:20)
[2019-09-27] MEDS: SPIRONOLACTONE 25 MG TABLET PO SCH (08:20)
[2019-09-27] MEDS: ASPIRIN CHEW 81 MG TABLET PO SCH (08:20)
[2019-09-27] MEDS: FUROSEMIDE 40 MG/4 ML VIAL IV SCH ×2 (08:22→17:21)
[2019-09-27] MEDS: ALBUMIN 25% 12.5 GM in PREMIX 1 EACH IV SCH ×2 (09:12→21:25)
[2019-09-27] MEDS ORDERED: FUROSEMIDE 40 MG/4 ML VIAL IV ONE (11:47)
[2019-09-27] MEDS: AZITHROMYCIN INJ 500 MG in SODIUM CHLORIDE 0.9% 250 ML IV SCH (12:19)
[2019-09-27 13:56] LABS: Calcium 8.2 MG/DL (8.5-10.1); Osmolality,Calculated 312.1 MOS/KG (273-304)
[2019-09-27] MEDS: DEXTROSE 5% 500 ML IV SCH (15:25)
[2019-09-27] MEDS: DEXTROSE 5% 1,000 ML IV SCH (15:36)
[2019-09-27] MEDS: ATORVASTATIN 20 MG TABLET PO SCH (20:29)
[2019-09-27] MEDS: TAMSULOSIN 0.4 MG CAPSULE PO SCH (20:29)
[2019-09-28] MEDS: POTASSIUM CHLORIDE 20 MEQ TABLET PO PRN ×3 (00:55→08:51)
[2019-09-28] MEDS: ALBUTEROL 2.5 MG/3 ML NEB RESP TX SCH ×4 (00:56→19:40)
[2019-09-28] MEDS: HYDROCORTISONE 100 MG VIAL IV SCH ×3 (00:56→17:14)
[2019-09-28] MEDS: DEXTROSE 5% 500 ML IV SCH ×2 (03:12→16:30)
[2019-09-28] MEDS: MEROPENEM 500 MG in SODIUM CHLORIDE 0.9% 100 ML IV SCH ×3 (04:05→17:49)
[2019-09-28 05:25] LABS: Basophils % 0.1 % (0.0-0.8); Eosinophils % 0.1 % (0.00-10.9); Hemoglobin 8.2 GM/DL (14.0-18.0); Immature Granulocytes % 1.7 %; Immature Granulocytes Absolute 0.17 #; Lymphocytes # 0.6 10*3/uL (1.4-4.0); Lymphocytes % 6.3 % (21.2-54.2); Mean Corpuscular HGB Conc 28.3 GM/DL (32-36); Mean Corpuscular Volume 79.5 FL (87-102); Mean Platelet Volume 12.2 FL (9.6-12.0); Monocytes % 5.7 % (1.7-12.7); Neutrophils % 86.1 % (38.7-73.9); Platelet Count 186 T/CUMM (130-400); Red Blood Count 3.65 MC/CUMM (3.8-5.5); Red Cell Distribution Width 21.8 % (9.3-17.3); White Blood Count 9.8 T/CUMM (4-12)
[2019-09-28 05:48] LABS: Albumin 2.1 G/DL (3.4-5.0); Bilirubin,Total 1.5 MG/DL (0.2-1.0); Calcium 8.2 MG/DL (8.5-10.1); Osmolality,Calculated 306.1 MOS/KG (273-304); Total Protein 5.7 G/DL (6.4-8.3)
[2019-09-28 06:20] LABS: Giant Platelets Few; Hypochromasia 3+; Platelet Estimate Normal; Polychromasia Few
[2019-09-28] MEDS: BUDESONIDE 0.5 MG/2 ML NEB RESP TX SCH ×2 (08:01→19:40)
[2019-09-28] MEDS: DILTIAZEM 60 MG TABLET PO SCH ×2 (08:34→21:31)
[2019-09-28] MEDS: SERTRALINE 25 MG TABLET PO SCH (08:35)
[2019-09-28] MEDS: SUCRALFATE 1 GM TABLET PO SCH ×4 (08:35→21:30)
[2019-09-28] MEDS: NEBIVOLOL 5 MG TABLET PO SCH (08:35)
[2019-09-28] MEDS: lisinopriL 20 MG TABLET PO SCH (08:35)
[2019-09-28] MEDS: ASPIRIN CHEW 81 MG TABLET PO SCH (08:35)
[2019-09-28] MEDS: SPIRONOLACTONE 25 MG TABLET PO SCH (08:35)
[2019-09-28] MEDS: FLUCONAZOLE 100 MG TABLET PO SCH (08:35)
[2019-09-28] MEDS: INSULIN REGULAR 100 UNIT/ML SUBCUT SCH ×4 (08:36→21:30)
[2019-09-28] MEDS: PANTOPRAZOLE 40 MG VIAL IV SCH ×2 (08:39→21:29)
[2019-09-28] MEDS: FUROSEMIDE 40 MG/4 ML VIAL IV SCH (08:42)
[2019-09-28] MEDS: ALBUMIN 25% 12.5 GM in PREMIX 1 EACH IV SCH ×2 (08:47→21:29)
[2019-09-28] MEDS ORDERED: POTASSIUM CHLORIDE 20 MEQ/15 ML UDCUP PO ONE (09:59)
[2019-09-28] MEDS: metOLazone 5 MG TABLET PO SCH (10:33)
[2019-09-28] MEDS: FUROSEMIDE 80 MG TABLET PO SCH (12:20)
[2019-09-28] MEDS: VANCOMYCIN INJ 2,000 MG in SODIUM CHLORIDE 0.9% 500 ML IV SCH (18:34)
[2019-09-28] MEDS: TAMSULOSIN 0.4 MG CAPSULE PO SCH (21:30)
[2019-09-28] MEDS: ATORVASTATIN 20 MG TABLET PO SCH (21:31)
[2019-09-29] MEDS: ALBUTEROL 2.5 MG/3 ML NEB RESP TX SCH ×4 (00:18→19:27)
[2019-09-29] MEDS: HYDROCORTISONE 100 MG VIAL IV SCH ×3 (00:30→17:23)
[2019-09-29] MEDS: MEROPENEM 500 MG in SODIUM CHLORIDE 0.9% 100 ML IV SCH ×4 (00:31→17:24)
[2019-09-29 05:16] LABS: Basophils % 0.1 % (0.0-0.8); Eosinophils % 0.1 % (0.00-10.9); Hematocrit 29.2 VOL% (42.0-52.0); Hemoglobin 8.4 GM/DL (14.0-18.0); Immature Granulocytes % 2.8 %; Lymphocytes # 0.6 10*3/uL (1.4-4.0); Lymphocytes % 5.6 % (21.2-54.2); Mean Corpuscular HGB Conc 28.8 GM/DL (32-36); Mean Corpuscular Volume 79.1 FL (87-102); Mean Platelet Volume 11.7 FL (9.6-12.0); Monocytes % 5.3 % (1.7-12.7); Neutrophils % 86.1 % (38.7-73.9); Platelet Count 167 T/CUMM (130-400); Red Blood Count 3.69 MC/CUMM (3.8-5.5); Red Cell Distribution Width 21.8 % (9.3-17.3); White Blood Count 10.8 T/CUMM (4-12)
[2019-09-29 05:50] LABS: Alanine Aminotransferase 28 U/L (16-61); Albumin 2.3 G/DL (3.4-5.0); Alkaline Phosphatase 56 U/L (45-117); Aspartate Amino Transferase 13 U/L (0-37); Blood Urea Nitrogen 39 MG/DL (7-18); Calcium 8.6 MG/DL (8.5-10.1); Estimated Glom Filtration Rate 71 ML/MIN; Glucose 160 MG/DL (74-106); Osmolality,Calculated 297.8 MOS/KG (273-304); Total Protein 5.7 G/DL (6.4-8.3)
[2019-09-29 05:56] LABS: Hypochromasia 1+; Microcytosis 1+; Platelet Estimate Decreased
[2019-09-29 05:57] LABS: Polychromasia Few
[2019-09-29] MEDS: BUDESONIDE 0.5 MG/2 ML NEB RESP TX SCH ×2 (07:34→19:27)
[2019-09-29] MEDS: PANTOPRAZOLE 40 MG VIAL IV SCH (09:05)
[2019-09-29] MEDS: SERTRALINE 25 MG TABLET PO SCH (09:05)
[2019-09-29] MEDS: NEBIVOLOL 5 MG TABLET PO SCH (09:05)
[2019-09-29] MEDS: lisinopriL 20 MG TABLET PO SCH (09:06)
[2019-09-29] MEDS: FUROSEMIDE 80 MG TABLET PO SCH ×2 (09:06→18:51)
[2019-09-29] MEDS: SUCRALFATE 1 GM TABLET PO SCH ×4 (09:06→22:08)
[2019-09-29] MEDS: ASPIRIN CHEW 81 MG TABLET PO SCH (09:06)
[2019-09-29] MEDS: metOLazone 5 MG TABLET PO SCH (09:06)
[2019-09-29] MEDS: SPIRONOLACTONE 25 MG TABLET PO SCH (09:06)
[2019-09-29] MEDS: POTASSIUM CHLORIDE 20 MEQ TABLET PO PRN ×6 (09:06→22:08)
[2019-09-29] MEDS: DILTIAZEM 60 MG TABLET PO SCH ×2 (09:06→22:08)
[2019-09-29] MEDS: INSULIN REGULAR 100 UNIT/ML SUBCUT SCH ×4 (11:23→22:09)
[2019-09-29] MEDS: DEXTROSE 5% 500 ML IV SCH ×2 (12:08→15:37)
[2019-09-29 13:20] LABS: Calcium 8.8 MG/DL (8.5-10.1); Osmolality,Calculated 292.3 MOS/KG (273-304)
[2019-09-29] MEDS: PANTOPRAZOLE 40 MG TABLET PO SCH (22:09)
[2019-09-29] MEDS: ATORVASTATIN 20 MG TABLET PO SCH (22:09)
[2019-09-29] MEDS: TAMSULOSIN 0.4 MG CAPSULE PO SCH (22:09)
[2019-09-30] MEDS: ALBUTEROL 2.5 MG/3 ML NEB RESP TX SCH ×4 (00:20→19:42)
[2019-09-30 00:47] LABS: Apearance,Urine CLEAR (Clear); Bilirubin,Urine Negative (Negative); Blood, Urine Negative (Negative); Glucose,Urine (UA) Negative (Negative); Ketones,Urine Negative (Negative); Mucus,Urine Occasional /LPF (Occasional); Nitrite,Urine Negative (Negative); Protein,Urine Negative; RBC,Urine 2 /HPF (0-4); Urine Color Straw (Yellow); Urine Specific Gravity 1.006 (1.001-1.035); Urine Urobilinogen < 2.0 EU/DL (0.2-1.0)
[2019-09-30] MEDS: DEXTROSE 5% 500 ML IV SCH ×2 (02:13→16:23)
[2019-09-30 03:43] LABS: Basophils % 0.1 % (0.0-0.8); Eosinophils % 0.5 % (0.00-10.9); Monocytes % 7.2 % (1.7-12.7)
[2019-09-30 04:04] LABS: Eosinophils # 0.1 10*3/uL (0.0-0.87); Hematocrit 30.9 VOL% (42.0-52.0); Immature Granulocytes % 1.8 %; Lymphocytes # 1.2 10*3/uL (1.4-4.0); Lymphocytes % 10.8 % (21.2-54.2); Mean Corpuscular HGB Conc 29.1 GM/DL (32-36); Mean Corpuscular Volume 79.2 FL (87-102); Mean Platelet Volume 11.7 FL (9.6-12.0); Neutrophils % 79.6 % (38.7-73.9); Platelet Count 168 T/CUMM (130-400); Red Cell Distribution Width 21.9 % (9.3-17.3)
[2019-09-30 04:29] LABS: Anisocytosis 1+; Hypochromasia 1+; Ovalocytes Few; Platelet Estimate Normal
[2019-09-30 04:53] LABS: Alanine Aminotransferase 27 U/L (16-61); Albumin 2.2 G/DL (3.4-5.0); Alkaline Phosphatase 60 U/L (45-117); Aspartate Amino Transferase 14 U/L (0-37); Blood Urea Nitrogen 39 MG/DL (7-18); Estimated Glom Filtration Rate 71 ML/MIN; Glucose 142 MG/DL (74-106); Osmolality,Calculated 289.4 MOS/KG (273-304); Total Protein 5.9 G/DL (6.4-8.3)
[2019-09-30 04:54] LABS: Blood Urea Nitrogen 41 MG/DL (7-18); Calcium 8.8 MG/DL (8.5-10.1); Estimated Glom Filtration Rate 71 ML/MIN; Glucose 144 MG/DL (74-106); Osmolality,Calculated 291.4 MOS/KG (273-304)
[2019-09-30] MEDS: POTASSIUM CHLORIDE 20 MEQ TABLET PO PRN ×3 (06:23→13:30)
[2019-09-30] MEDS: BUDESONIDE 0.5 MG/2 ML NEB RESP TX SCH ×2 (08:07→19:42)
[2019-09-30] MEDS: INSULIN REGULAR 100 UNIT/ML SUBCUT SCH ×4 (08:44→21:07)
[2019-09-30] MEDS: metOLazone 5 MG TABLET PO SCH (09:51)
[2019-09-30] MEDS: DILTIAZEM 60 MG TABLET PO SCH (09:51)
[2019-09-30] MEDS: SPIRONOLACTONE 25 MG TABLET PO SCH (09:51)
[2019-09-30] MEDS: SERTRALINE 25 MG TABLET PO SCH (09:51)
[2019-09-30] MEDS: NEBIVOLOL 5 MG TABLET PO SCH (09:51)
[2019-09-30] MEDS: SUCRALFATE 1 GM TABLET PO SCH ×4 (09:51→21:06)
[2019-09-30] MEDS: lisinopriL 20 MG TABLET PO SCH (09:52)
[2019-09-30] MEDS: predniSONE 20 MG TABLET PO SCH (09:52)
[2019-09-30] MEDS: FUROSEMIDE 80 MG TABLET PO SCH ×2 (09:52→16:21)
[2019-09-30] MEDS: ASPIRIN CHEW 81 MG TABLET PO SCH (09:52)
[2019-09-30] MEDS: PANTOPRAZOLE 40 MG TABLET PO SCH ×2 (09:52→21:06)
[2019-09-30] MEDS: ATORVASTATIN 20 MG TABLET PO SCH (21:06)
[2019-09-30] MEDS: TAMSULOSIN 0.4 MG CAPSULE PO SCH (21:06)
[2019-10-01] MEDS: DEXTROSE 5% 500 ML IV SCH (01:08)
[2019-10-01] MEDS: ALBUTEROL 2.5 MG/3 ML NEB RESP TX SCH ×4 (01:40→19:40)
[2019-10-01 05:39] LABS: Basophils % 0.1 % (0.0-0.8); Eosinophils % 0.3 % (0.00-10.9); Hematocrit 29.6 VOL% (42.0-52.0); Hemoglobin 8.7 GM/DL (14.0-18.0); Immature Granulocytes % 1.6 %; Immature Granulocytes Absolute 0.19 #; Lymphocytes # 1.3 10*3/uL (1.4-4.0); Lymphocytes % 11.6 % (21.2-54.2); Mean Corpuscular HGB Conc 29.4 GM/DL (32-36); Mean Corpuscular Volume 78.3 FL (87-102); Monocytes % 7.9 % (1.7-12.7); Neutrophils % 78.5 % (38.7-73.9); Platelet Count 163 T/CUMM (130-400); Red Blood Count 3.78 MC/CUMM (3.8-5.5); Red Cell Distribution Width 22.2 % (9.3-17.3); White Blood Count 11.5 T/CUMM (4-12)
[2019-10-01 06:30] LABS: Blood Urea Nitrogen 50 MG/DL (7-18); Calcium 8.7 MG/DL (8.5-10.1); Estimated Glom Filtration Rate 57 ML/MIN; Glucose 124 MG/DL (74-106); Osmolality,Calculated 290.5 MOS/KG (273-304)
[2019-10-01 07:30] LABS: Hypochromasia 3+
[2019-10-01 07:31] LABS: Anisocytosis 2+; Microcytosis 2+; Platelet Estimate Normal; Target Cells Few
[2019-10-01] MEDS: BUDESONIDE 0.5 MG/2 ML NEB RESP TX SCH ×2 (08:13→19:40)
[2019-10-01] MEDS: FUROSEMIDE 80 MG TABLET PO SCH (09:26)
[2019-10-01] MEDS: metOLazone 5 MG TABLET PO SCH (09:26)
[2019-10-01] MEDS: INSULIN REGULAR 100 UNIT/ML SUBCUT SCH ×3 (09:26→17:14)
[2019-10-01] MEDS: SPIRONOLACTONE 25 MG TABLET PO SCH (09:26)
[2019-10-01] MEDS: NEBIVOLOL 5 MG TABLET PO SCH (09:26)
[2019-10-01] MEDS: POTASSIUM CHLORIDE 20 MEQ TABLET PO PRN ×3 (09:27→17:14)
[2019-10-01] MEDS: SERTRALINE 25 MG TABLET PO SCH (09:27)
[2019-10-01] MEDS: PANTOPRAZOLE 40 MG TABLET PO SCH ×2 (09:27→20:30)
[2019-10-01] MEDS: predniSONE 20 MG TABLET PO SCH (09:27)
[2019-10-01] MEDS: ASPIRIN CHEW 81 MG TABLET PO SCH (09:27)
[2019-10-01] MEDS: SUCRALFATE 1 GM TABLET PO SCH ×4 (09:27→20:30)
[2019-10-01] MEDS ORDERED: SODIUM CHLORIDE 0.9% 500 ML IV ONE (09:38)
[2019-10-01] MEDS: TAMSULOSIN 0.4 MG CAPSULE PO SCH (20:30)
[2019-10-01] MEDS: ATORVASTATIN 20 MG TABLET PO SCH (20:30)
[2019-10-02] MEDS: INSULIN REGULAR 100 UNIT/ML SUBCUT SCH ×5 (00:36→20:54)
[2019-10-02] MEDS: ALBUTEROL 2.5 MG/3 ML NEB RESP TX SCH ×4 (01:30→19:51)
[2019-10-02] MEDS: DEXTROSE 5% 500 ML IV SCH (04:38)
[2019-10-02 07:08] LABS: Calcium 8.7 MG/DL (8.5-10.1); Osmolality,Calculated 294.3 MOS/KG (273-304)
[2019-10-02] MEDS: BUDESONIDE 0.5 MG/2 ML NEB RESP TX SCH ×2 (07:32→19:51)
[2019-10-02] MEDS: predniSONE 20 MG TABLET PO SCH (08:05)
[2019-10-02] MEDS: ASPIRIN CHEW 81 MG TABLET PO SCH (08:05)
[2019-10-02] MEDS: PANTOPRAZOLE 40 MG TABLET PO SCH ×2 (08:05→20:49)
[2019-10-02] MEDS: SERTRALINE 25 MG TABLET PO SCH (08:05)
[2019-10-02] MEDS: SUCRALFATE 1 GM TABLET PO SCH ×4 (08:05→20:49)
[2019-10-02] MEDS: FUROSEMIDE 80 MG TABLET PO SCH (08:06)
[2019-10-02] MEDS: SPIRONOLACTONE 25 MG TABLET PO SCH (08:06)
[2019-10-02] MEDS: NEBIVOLOL 5 MG TABLET PO SCH (08:06)
[2019-10-02] MEDS: ATORVASTATIN 20 MG TABLET PO SCH (20:49)
[2019-10-02] MEDS: TAMSULOSIN 0.4 MG CAPSULE PO SCH (20:49)
[2019-10-03] MEDS: ALBUTEROL 2.5 MG/3 ML NEB RESP TX SCH ×4 (00:37→19:39)
[2019-10-03] MEDS: DEXTROSE 5% 500 ML IV SCH (03:18)
[2019-10-03 05:09] LABS: Calcium 8.8 MG/DL (8.5-10.1); Osmolality,Calculated 286.8 MOS/KG (273-304)
[2019-10-03] MEDS: BUDESONIDE 0.5 MG/2 ML NEB RESP TX SCH ×2 (06:54→19:39)
[2019-10-03] MEDS: INSULIN REGULAR 100 UNIT/ML SUBCUT SCH ×4 (08:53→22:40)
[2019-10-03] MEDS: SPIRONOLACTONE 25 MG TABLET PO SCH (08:54)
[2019-10-03] MEDS: SERTRALINE 25 MG TABLET PO SCH (08:54)
[2019-10-03] MEDS: predniSONE 20 MG TABLET PO SCH (08:54)
[2019-10-03] MEDS: FUROSEMIDE 80 MG TABLET PO SCH (08:55)
[2019-10-03] MEDS: ASPIRIN CHEW 81 MG TABLET PO SCH (08:55)
[2019-10-03] MEDS: NEBIVOLOL 5 MG TABLET PO SCH (08:55)
[2019-10-03] MEDS: SUCRALFATE 1 GM TABLET PO SCH ×4 (08:55→22:40)
[2019-10-03] MEDS ORDERED: metOLazone 5 MG TABLET PO SCH (09:00)
[2019-10-03] MEDS: PANTOPRAZOLE 40 MG TABLET PO SCH ×2 (10:28→22:40)
[2019-10-03] MEDS: DEXTROSE 5% 1,000 ML IV SCH (19:12)
[2019-10-03] MEDS: TAMSULOSIN 0.4 MG CAPSULE PO SCH (22:39)
[2019-10-03] MEDS: ATORVASTATIN 20 MG TABLET PO SCH (22:40)
[2019-10-04] MEDS: ALBUTEROL 2.5 MG/3 ML NEB RESP TX SCH ×4 (00:38→19:49)
[2019-10-04] MEDS: DEXTROSE 5% 1,000 ML IV SCH (07:12)
[2019-10-04] MEDS: BUDESONIDE 0.5 MG/2 ML NEB RESP TX SCH ×2 (08:28→19:49)
[2019-10-04] MEDS: INSULIN REGULAR 100 UNIT/ML SUBCUT SCH ×4 (08:35→21:23)
[2019-10-04] MEDS: NEBIVOLOL 5 MG TABLET PO SCH (09:15)
[2019-10-04] MEDS: FUROSEMIDE 80 MG TABLET PO SCH (09:16)
[2019-10-04] MEDS: PANTOPRAZOLE 40 MG TABLET PO SCH ×2 (09:16→21:23)
[2019-10-04] MEDS: SUCRALFATE 1 GM TABLET PO SCH ×4 (09:16→21:24)
[2019-10-04] MEDS: ASPIRIN CHEW 81 MG TABLET PO SCH (09:17)
[2019-10-04] MEDS: predniSONE 20 MG TABLET PO SCH (09:17)
[2019-10-04] MEDS: SPIRONOLACTONE 25 MG TABLET PO SCH (09:17)
[2019-10-04] MEDS: SERTRALINE 25 MG TABLET PO SCH (09:17)
[2019-10-04] MEDS: TAMSULOSIN 0.4 MG CAPSULE PO SCH (21:23)
[2019-10-04] MEDS: ATORVASTATIN 20 MG TABLET PO SCH (21:24)
[2019-10-05] MEDS: ALBUTEROL 2.5 MG/3 ML NEB RESP TX SCH ×4 (01:20→19:40)
[2019-10-05] MEDS: BUDESONIDE 0.5 MG/2 ML NEB RESP TX SCH ×2 (07:15→19:40)
[2019-10-05] MEDS: INSULIN REGULAR 100 UNIT/ML SUBCUT SCH ×4 (07:50→20:52)
[2019-10-05] MEDS: DEXTROSE 5% 1,000 ML IV SCH (08:39)
[2019-10-05] MEDS: ASPIRIN CHEW 81 MG TABLET PO SCH (09:41)
[2019-10-05] MEDS: SERTRALINE 25 MG TABLET PO SCH (09:41)
[2019-10-05] MEDS: FUROSEMIDE 80 MG TABLET PO SCH (09:41)
[2019-10-05] MEDS: predniSONE 20 MG TABLET PO SCH (09:41)
[2019-10-05] MEDS: SPIRONOLACTONE 25 MG TABLET PO SCH (09:41)
[2019-10-05] MEDS: SUCRALFATE 1 GM TABLET PO SCH ×4 (09:41→20:52)
[2019-10-05] MEDS: NEBIVOLOL 5 MG TABLET PO SCH (09:42)
[2019-10-05] MEDS: PANTOPRAZOLE 40 MG TABLET PO SCH ×2 (09:43→20:52)
[2019-10-05 18:11] LABS: CDT Result Negative (Negative); CDT Specimen Source STOOL
[2019-10-05] MEDS: ATORVASTATIN 20 MG TABLET PO SCH (20:52)
[2019-10-06] MEDS: ALBUTEROL 2.5 MG/3 ML NEB RESP TX SCH ×4 (00:24→19:14)
[2019-10-06 05:30] LABS: Basophils % 0.1 % (0.0-0.8); Eosinophils # 0.1 10*3/uL (0.0-0.87); Eosinophils % 0.6 % (0.00-10.9); Hematocrit 28.1 VOL% (42.0-52.0); Hemoglobin 8.2 GM/DL (14.0-18.0); Immature Granulocytes % 0.6 %; Immature Granulocytes Absolute 0.05 #; Lymphocytes # 1.2 10*3/uL (1.4-4.0); Lymphocytes % 13.1 % (21.2-54.2); Mean Corpuscular HGB Conc 29.2 GM/DL (32-36); Mean Corpuscular Volume 78.3 FL (87-102); Mean Platelet Volume 12.6 FL (9.6-12.0); Monocytes % 7.9 % (1.7-12.7); Neutrophils % 77.7 % (38.7-73.9); Platelet Count 207 T/CUMM (130-400); Red Blood Count 3.59 MC/CUMM (3.8-5.5); Red Cell Distribution Width 22.5 % (9.3-17.3)
[2019-10-06] MEDS: DEXTROSE 5% 1,000 ML IV SCH (05:37)
[2019-10-06 05:59] LABS: Calcium 8.9 MG/DL (8.5-10.1)
[2019-10-06 06:08] LABS: Hypochromasia 1+; Microcytosis Slight; Ovalocytes Slight; Platelet Estimate Adequate
[2019-10-06] MEDS: BUDESONIDE 0.5 MG/2 ML NEB RESP TX SCH ×2 (07:12→19:14)
[2019-10-06] MEDS: INSULIN REGULAR 100 UNIT/ML SUBCUT SCH ×3 (07:43→16:31)
[2019-10-06] MEDS: SUCRALFATE 1 GM TABLET PO SCH ×4 (08:51→20:14)
[2019-10-06] MEDS: PANTOPRAZOLE 40 MG TABLET PO SCH ×2 (08:51→20:14)
[2019-10-06] MEDS: predniSONE 20 MG TABLET PO SCH (08:51)
[2019-10-06] MEDS: SERTRALINE 25 MG TABLET PO SCH (08:51)
[2019-10-06] MEDS: ASPIRIN CHEW 81 MG TABLET PO SCH (08:51)
[2019-10-06] MEDS: ATORVASTATIN 20 MG TABLET PO SCH (20:14)
[2019-10-07] MEDS: ALBUTEROL 2.5 MG/3 ML NEB RESP TX SCH ×4 (00:36→19:15)
[2019-10-07] MEDS: INSULIN REGULAR 100 UNIT/ML SUBCUT SCH ×5 (00:47→20:45)
[2019-10-07 04:57] LABS: Basophils % 0.2 % (0.0-0.8); Eosinophils % 0.4 % (0.00-10.9); Hemoglobin 8.2 GM/DL (14.0-18.0); Immature Granulocytes % 0.6 %; Immature Granulocytes Absolute 0.06 #; Lymphocytes # 1.1 10*3/uL (1.4-4.0); Lymphocytes % 11.6 % (21.2-54.2); Mean Corpuscular HGB Conc 29.3 GM/DL (32-36); Mean Corpuscular Volume 77.8 FL (87-102); Monocytes % 7.4 % (1.7-12.7); Neutrophils % 79.8 % (38.7-73.9); Platelet Count 202 T/CUMM (130-400); Red Cell Distribution Width 22.5 % (9.3-17.3); White Blood Count 9.3 T/CUMM (4-12)
[2019-10-07 05:17] LABS: Calcium 9.1 MG/DL (8.5-10.1)
[2019-10-07] MEDS: BUDESONIDE 0.5 MG/2 ML NEB RESP TX SCH ×2 (07:34→19:15)
[2019-10-07] MEDS: ASPIRIN CHEW 81 MG TABLET PO SCH (08:40)
[2019-10-07] MEDS: SUCRALFATE 1 GM TABLET PO SCH ×4 (08:41→20:44)
[2019-10-07] MEDS: predniSONE 20 MG TABLET PO SCH (08:41)
[2019-10-07] MEDS: SERTRALINE 25 MG TABLET PO SCH (08:41)
[2019-10-07] MEDS: PANTOPRAZOLE 40 MG TABLET PO SCH ×2 (08:41→20:44)
[2019-10-07] MEDS: ATORVASTATIN 20 MG TABLET PO SCH (20:44)
[2019-10-08] MEDS: ALBUTEROL 2.5 MG/3 ML NEB RESP TX SCH ×4 (00:34→19:31)
[2019-10-08] MEDS: BUDESONIDE 0.5 MG/2 ML NEB RESP TX SCH ×2 (07:40→19:31)
[2019-10-08] MEDS: SUCRALFATE 1 GM TABLET PO SCH ×4 (08:10→21:43)
[2019-10-08] MEDS: ASPIRIN CHEW 81 MG TABLET PO SCH (08:10)
[2019-10-08] MEDS: INSULIN REGULAR 100 UNIT/ML SUBCUT SCH ×4 (08:11→21:44)
[2019-10-08] MEDS: PANTOPRAZOLE 40 MG TABLET PO SCH ×2 (08:11→21:44)
[2019-10-08] MEDS: predniSONE 20 MG TABLET PO SCH (08:11)
[2019-10-08] MEDS: SERTRALINE 25 MG TABLET PO SCH (08:11)
[2019-10-08] MEDS: ATORVASTATIN 20 MG TABLET PO SCH (21:44)
[2019-10-09] MEDS: ALBUTEROL 2.5 MG/3 ML NEB RESP TX SCH ×4 (01:18→19:36)
[2019-10-09 05:53] LABS: Basophils % 0.3 % (0.0-0.8); Eosinophils # 0.1 10*3/uL (0.0-0.87); Eosinophils % 0.7 % (0.00-10.9); Hematocrit 27.3 VOL% (42.0-52.0); Hemoglobin 7.9 GM/DL (14.0-18.0); Immature Granulocytes % 0.8 %; Immature Granulocytes Absolute 0.06 #; Lymphocytes # 0.9 10*3/uL (1.4-4.0); Lymphocytes % 12.7 % (21.2-54.2); Mean Corpuscular HGB Conc 28.9 GM/DL (32-36); Mean Corpuscular Volume 78.4 FL (87-102); Mean Platelet Volume 12.1 FL (9.6-12.0); Monocytes % 6.7 % (1.7-12.7); Neutrophils % 78.8 % (38.7-73.9); Platelet Count 207 T/CUMM (130-400); Red Blood Count 3.48 MC/CUMM (3.8-5.5); Red Cell Distribution Width 22.3 % (9.3-17.3); White Blood Count 7.3 T/CUMM (4-12)
[2019-10-09 06:14] LABS: Hypochromasia 2+; Platelet Estimate Adequate
[2019-10-09 06:28] LABS: Calcium 9.1 MG/DL (8.5-10.1); Osmolality,Calculated 299.7 MOS/KG (273-304)
[2019-10-09 06:38] LABS: Folate 7.7 NG/ML (5.4-24.0)
[2019-10-09 06:43] LABS: % Iron Saturation 7.6 % (18-50)
[2019-10-09] MEDS: BUDESONIDE 0.5 MG/2 ML NEB RESP TX SCH ×2 (07:51→19:36)
[2019-10-09] MEDS: predniSONE 20 MG TABLET PO SCH (07:59)
[2019-10-09] MEDS: PANTOPRAZOLE 40 MG TABLET PO SCH ×2 (07:59→22:13)
[2019-10-09] MEDS: INSULIN REGULAR 100 UNIT/ML SUBCUT SCH ×4 (07:59→22:14)
[2019-10-09] MEDS: ASPIRIN CHEW 81 MG TABLET PO SCH (07:59)
[2019-10-09] MEDS: SERTRALINE 25 MG TABLET PO SCH (07:59)
[2019-10-09] MEDS: SUCRALFATE 1 GM TABLET PO SCH ×4 (07:59→22:13)
[2019-10-09] MEDS: POTASSIUM CHLORIDE 20 MEQ TABLET PO SCH ×2 (17:12→22:13)
[2019-10-09] MEDS: ATORVASTATIN 20 MG TABLET PO SCH (22:14)
[2019-10-10] MEDS: ALBUTEROL 2.5 MG/3 ML NEB RESP TX SCH ×3 (01:51→13:59)
[2019-10-10 05:03] LABS: Basophils % 0.4 % (0.0-0.8); Eosinophils % 0.5 % (0.00-10.9); Hematocrit 27.4 VOL% (42.0-52.0); Immature Granulocytes Absolute 0.08 #; Lymphocytes % 12.8 % (21.2-54.2); Mean Corpuscular HGB Conc 29.2 GM/DL (32-36); Mean Platelet Volume 11.2 FL (9.6-12.0); Monocytes % 6.8 % (1.7-12.7); Neutrophils % 78.5 % (38.7-73.9); Platelet Count 206 T/CUMM (130-400); Red Blood Count 3.47 MC/CUMM (3.8-5.5); Red Cell Distribution Width 22.4 % (9.3-17.3); White Blood Count 7.8 T/CUMM (4-12)
[2019-10-10 05:28] LABS: Calcium 9.2 MG/DL (8.5-10.1); Osmolality,Calculated 291.3 MOS/KG (273-304)
[2019-10-10 05:43] LABS: Anisocytosis 1+; Eosinophils 1 % (0-10); Hypochromasia 1+; Lymphocytes 11 % (20-55); Microcytosis 1+; Segmented Neutrophils 82 % (50-85); Total Cells Counted 100
[2019-10-10 05:44] LABS: Platelet Estimate Normal
[2019-10-10] MEDS: BUDESONIDE 0.5 MG/2 ML NEB RESP TX SCH (07:14)
[2019-10-10] MEDS: INSULIN REGULAR 100 UNIT/ML SUBCUT SCH ×2 (08:29→11:56)
[2019-10-10] MEDS: PANTOPRAZOLE 40 MG TABLET PO SCH (09:25)
[2019-10-10] MEDS: predniSONE 20 MG TABLET PO SCH (09:25)
[2019-10-10] MEDS: SERTRALINE 25 MG TABLET PO SCH (09:25)
[2019-10-10] MEDS: ASPIRIN CHEW 81 MG TABLET PO SCH (09:25)
[2019-10-10] MEDS: SUCRALFATE 1 GM TABLET PO SCH ×2 (09:25→11:56)
[2019-10-10 16:27] VITALS: BP 135/73
== END 2019-10-10 16:27 | disposition swing bed (61) | DRG 871 ==
LOC: EDUNIT# → EDBD → N.ED 11:39 → SUATTDRO 14:14 → N.EDINP 14:14 → N.CC 15:08 → N.2E 09-28 17:48
PROVIDERS: ADMIT Internal Medicine; ATTEND Internal Medicine

== ENCOUNTER 2019-11-28 23:18 | Inpatient (IN) ==
[2019-11-28] MEDS ORDERED: ALBUTEROL/IPRATROPIUM 3 ML NEB RESP TX STA (23:39)
[2019-11-28] MEDS ORDERED: cefTRIAXone 1,000 MG in SODIUM CHLORIDE 0.9% 100 ML IV STA (23:39)
[2019-11-28] MEDS ORDERED: ONDANSETRON 4 MG/2 ML VIAL IV STA (23:39)
[2019-11-28] MEDS ORDERED: DILTIAZEM 50 MG/10 ML VIAL IV STA (23:39)
[2019-11-28] MEDS ORDERED: methylPREDNISolone SOD SUC 125 MG/2 ML VIAL IV STA (23:39)
[2019-11-28] MEDS ORDERED: FUROSEMIDE 40 MG/4 ML VIAL IV STA (23:39)
[2019-11-28] MEDS ORDERED: dilTIAZem Drip 125 MG/125 ML PREMIX IV ONE (23:44)
[2019-11-28] MEDS ORDERED: dilTIAZem Drip 125 MG/125 ML PREMIX IV SCH (23:45)
[2019-11-28] MEDS ORDERED: DILTIAZEM 25 MG/5 ML VIAL IV ONE (23:45)
[2019-11-28 23:49] LABS: Basophils # 0.1 10*3/uL (0.0-0.2); Basophils % 0.5 % (0.0-0.8); Eosinophils % 0.4 % (0.00-10.9); Immature Granulocytes % 2.9 %; Immature Granulocytes Absolute 0.31 #; Lymphocytes # 2.4 10*3/uL (1.4-4.0); Lymphocytes % 21.8 % (21.2-54.2); Mean Corpuscular HGB Conc 27.4 GM/DL (32-36); Mean Corpuscular Volume 80.4 FL (87-102); Mean Platelet Volume 10.7 FL (9.6-12.0); Neutrophils % 67.4 % (38.7-73.9); Platelet Count 326 T/CUMM (130-400); Red Blood Count 3.63 MC/CUMM (3.8-5.5); Red Cell Distribution Width 19.4 % (9.3-17.3); White Blood Count 10.9 T/CUMM (4-12)
[2019-11-29 00:01] LABS: Alanine Aminotransferase < 9 U/L (16-61); Albumin 2.2 G/DL (3.4-5.0); Alkaline Phosphatase 74 U/L (45-117); Aspartate Amino Transferase 12 U/L (0-37); Bilirubin,Total < 0.39 MG/DL (0.2-1.0); Blood Urea Nitrogen 21 MG/DL (7-18); Calcium 8.8 MG/DL (8.5-10.1); Estimated Glom Filtration Rate 78 ML/MIN; Glucose 139 MG/DL (74-106); Osmolality,Calculated 290.8 MOS/KG (273-304); Total Protein 6.3 G/DL (6.4-8.3)
[2019-11-29] MEDS ORDERED: MAGNESIUM SULF RIDER 2 GM in PREMIX 1 EACH IV STA (00:03)
[2019-11-29] MEDS ORDERED: PIPERACILLIN/TAZOBACTAM 3,375 MG in SODIUM CHLORIDE 0.9% 100 ML IV STA (00:04)
[2019-11-29 00:10] LABS: ABG Base Excess 6.3 MMOL/L (-2.5-2.5); ABG HCO3 31.4 MMOL/L (20-26); ABG Oxygen Saturation 90.5 % (95-100); ABG PCO2 48.3 MM HG (35-48); ABG PH 7.431 (7.35-7.45); ABG PO2 62.2 MM HG (80-95); ABG TCO2 32.9 MMOL/L (23-27); Allen Test Positive
[2019-11-29 01:24] LABS: Anisocytosis 1+; Microcytosis 1+; Platelet Estimate Normal
[2019-11-29] MEDS ORDERED: ALBUTEROL/IPRATROPIUM 3 ML NEB RESP TX PRN (01:53)
[2019-11-29] MEDS ORDERED: AZITHROMYCIN 250 MG TABLET PO STA (02:00)
[2019-11-29] MEDS ORDERED: GLUCAGON 1 MG VIAL IM PRN (02:03)
[2019-11-29] MEDS ORDERED: DEXTROSE 10% 250 ML BAG IV PRN (02:07)
[2019-11-29] MEDS ORDERED: ALBUTEROL 2.5 MG/3 ML NEB RESP TX PRN (03:00)
[2019-11-29] MEDS ORDERED: MAGNESIUM SULF RIDER 4 GM in PREMIX 1 EACH IV ONE (03:30)
[2019-11-29 06:11] LABS: Basophils % 0.2 % (0.0-0.8); Hematocrit 26.6 VOL% (42.0-52.0); Immature Granulocytes % 4.9 %; Immature Granulocytes Absolute 0.44 #; Lymphocytes # 0.5 10*3/uL (1.4-4.0); Lymphocytes % 5.3 % (21.2-54.2); Mean Corpuscular HGB Conc 28.6 GM/DL (32-36); Mean Corpuscular Volume 78.5 FL (87-102); Mean Platelet Volume 10.5 FL (9.6-12.0); Monocytes % 1.1 % (1.7-12.7); Neutrophils % 88.5 % (38.7-73.9); Platelet Count 321 T/CUMM (130-400); Red Blood Count 3.39 MC/CUMM (3.8-5.5); Red Cell Distribution Width 19.3 % (9.3-17.3); White Blood Count 8.9 T/CUMM (4-12)
[2019-11-29 06:13] LABS: Hemoglobin 7.6 GM/DL (14.0-18.0)
[2019-11-29 06:13] LABS: Calcium 9.3 MG/DL (8.5-10.1); Osmolality,Calculated 285.5 MOS/KG (273-304); Thyroid Stimulating Hormone 0.236 uIU/ml (0.358-3.74)
[2019-11-29 06:14] LABS: Hypochromasia 1+; Ovalocytes Slight; Platelet Estimate Adequate
[2019-11-29 06:15] LABS: Microcytosis 1+
[2019-11-29] MEDS ORDERED: DIGOXIN 0.5 MG/2 ML AMP IV ONE ×2 (08:21→10:00)
[2019-11-29 09:00] LABS: Apearance,Urine CLEAR (Clear); Bilirubin,Urine Negative (Negative); Blood, Urine Negative (Negative); Glucose,Urine (UA) Negative (Negative); Ketones,Urine Negative (Negative); Mucus,Urine Occasional /LPF (Occasional); Nitrite,Urine Negative (Negative); Protein,Urine Negative; RBC,Urine 2 /HPF (0-4); Squamous Epithelial Cell,Urine Occasional /HPF (0-10); Urine Color Yellow (Yellow); Urine Specific Gravity 1.039 (1.001-1.035); Urine Urobilinogen < 2.0 EU/DL (0.2-1.0)
[2019-11-29] MEDS: INSULIN LISPRO 100 UNIT/ML SUBCUT SCH ×4 (09:11→20:52)
[2019-11-29] MEDS: ASPIRIN CHEW 81 MG TABLET PO SCH (09:12)
[2019-11-29] MEDS: AZITHROMYCIN 250 MG TABLET PO SCH (09:12)
[2019-11-29] MEDS: POTASSIUM CHLORIDE 20 MEQ TABLET PO SCH ×3 (09:13→16:41)
[2019-11-29] MEDS: FUROSEMIDE 20 MG TABLET PO SCH (09:13)
[2019-11-29] MEDS: APIXABAN 2.5 MG TABLET PO SCH ×2 (09:13→20:53)
[2019-11-29] MEDS: PANTOPRAZOLE 40 MG TABLET PO SCH ×2 (09:13→20:53)
[2019-11-29] MEDS: SERTRALINE 25 MG TABLET PO SCH (09:13)
[2019-11-29] MEDS: FERROUS SULFATE 325 MG TABLET PO SCH ×2 (09:13→20:53)
[2019-11-29] MEDS: methylPREDNISolone SOD SUC 40 MG/1 ML VIAL IV SCH ×2 (11:25→23:45)
[2019-11-29] MEDS: cefTRIAXone 1,000 MG in SYRINGE 1 EACH IV SCH (16:41)
[2019-11-29] MEDS: TAMSULOSIN 0.4 MG CAPSULE PO SCH (20:53)
[2019-11-30 04:18] LABS: Basophils % 0.3 % (0.0-0.8); Hematocrit 26.8 VOL% (42.0-52.0); Immature Granulocytes % 5.4 %; Immature Granulocytes Absolute 0.52 #; Lymphocytes # 0.8 10*3/uL (1.4-4.0); Lymphocytes % 8.5 % (21.2-54.2); Mean Corpuscular Volume 78.8 FL (87-102); Mean Platelet Volume 10.5 FL (9.6-12.0); Monocytes % 1.8 % (1.7-12.7); NRBC # 0.02 10*3/uL; Platelet Count 318 T/CUMM (130-400); Red Cell Distribution Width 19.4 % (9.3-17.3); White Blood Count 9.7 T/CUMM (4-12)
[2019-11-30 04:48] LABS: Calcium 9.4 MG/DL (8.5-10.1); Osmolality,Calculated 288.3 MOS/KG (273-304)
[2019-11-30 04:50] LABS: Hemoglobin 7.5 GM/DL (14.0-18.0)
[2019-11-30 04:52] LABS: Anisocytosis 1+; Hypochromasia 1+; Lymphocytes 4 % (20-55); Microcytosis 1+; Myelocytes 1 %; Ovalocytes Slight; Platelet Estimate Normal; Segmented Neutrophils 94 % (50-85); Total Cells Counted 100
[2019-11-30] MEDS: INSULIN LISPRO 100 UNIT/ML SUBCUT SCH ×4 (08:06→20:24)
[2019-11-30] MEDS: ASPIRIN CHEW 81 MG TABLET PO SCH (09:31)
[2019-11-30] MEDS: APIXABAN 2.5 MG TABLET PO SCH ×2 (09:31→20:29)
[2019-11-30] MEDS: PANTOPRAZOLE 40 MG TABLET PO SCH ×2 (09:31→20:24)
[2019-11-30] MEDS: FERROUS SULFATE 325 MG TABLET PO SCH ×2 (09:31→20:24)
[2019-11-30] MEDS: FUROSEMIDE 20 MG TABLET PO SCH (09:31)
[2019-11-30] MEDS: AZITHROMYCIN 250 MG TABLET PO SCH (09:31)
[2019-11-30] MEDS: SERTRALINE 25 MG TABLET PO SCH (09:31)
[2019-11-30] MEDS: methylPREDNISolone SOD SUC 40 MG/1 ML VIAL IV SCH (13:16)
[2019-11-30] MEDS: cefTRIAXone 1,000 MG in SYRINGE 1 EACH IV SCH (18:02)
[2019-11-30] MEDS: TAMSULOSIN 0.4 MG CAPSULE PO SCH (20:24)
[2019-12-01] MEDS: methylPREDNISolone SOD SUC 40 MG/1 ML VIAL IV SCH ×2 (00:35→12:11)
[2019-12-01 05:21] LABS: Basophils % 0.1 % (0.0-0.8)
[2019-12-01 05:37] LABS: Calcium 9.3 MG/DL (8.5-10.1); Osmolality,Calculated 288.5 MOS/KG (273-304)
[2019-12-01 06:02] LABS: Hematocrit 27.6 VOL% (42.0-52.0); Hemoglobin 7.6 GM/DL (14.0-18.0); Immature Granulocytes Absolute 0.56 #; Lymphocytes % 8.8 % (21.2-54.2); Mean Corpuscular HGB Conc 27.5 GM/DL (32-36); Mean Corpuscular Volume 79.3 FL (87-102); Mean Platelet Volume 10.3 FL (9.6-12.0); Monocytes % 3.2 % (1.7-12.7); NRBC # 0.02 10*3/uL; Neutrophils % 82.9 % (38.7-73.9); Platelet Count 318 T/CUMM (130-400); Red Blood Count 3.48 MC/CUMM (3.8-5.5); Red Cell Distribution Width 19.1 % (9.3-17.3); White Blood Count 11.1 T/CUMM (4-12)
[2019-12-01 06:10] LABS: Hypochromasia 2+; Lymphocytes 8 % (20-55); Myelocytes 2 %; Segmented Neutrophils 88 % (50-85); Total Cells Counted 100
[2019-12-01 06:11] LABS: Microcytosis 1+; Polychromasia Slight
[2019-12-01 06:13] LABS: Ovalocytes Slight; Platelet Estimate Normal
[2019-12-01] MEDS: INSULIN LISPRO 100 UNIT/ML SUBCUT SCH ×4 (07:53→21:01)
[2019-12-01] MEDS: FUROSEMIDE 20 MG TABLET PO SCH (08:23)
[2019-12-01] MEDS: APIXABAN 2.5 MG TABLET PO SCH ×2 (08:23→21:01)
[2019-12-01] MEDS: AZITHROMYCIN 250 MG TABLET PO SCH (08:23)
[2019-12-01] MEDS: SERTRALINE 25 MG TABLET PO SCH (08:24)
[2019-12-01] MEDS: FERROUS SULFATE 325 MG TABLET PO SCH ×2 (08:24→21:01)
[2019-12-01] MEDS: PANTOPRAZOLE 40 MG TABLET PO SCH ×2 (08:24→21:01)
[2019-12-01] MEDS: ASPIRIN CHEW 81 MG TABLET PO SCH ×2 (08:26→21:01)
[2019-12-01] MEDS: cefTRIAXone 1,000 MG in SYRINGE 1 EACH IV SCH (17:17)
[2019-12-01] MEDS: TAMSULOSIN 0.4 MG CAPSULE PO SCH (21:01)
[2019-12-02] MEDS: methylPREDNISolone SOD SUC 40 MG/1 ML VIAL IV SCH ×2 (01:04→11:59)
[2019-12-02 04:51] LABS: Basophils # 0.1 10*3/uL (0.0-0.2); Basophils % 0.4 % (0.0-0.8); Eosinophils % 0.2 % (0.00-10.9); Hematocrit 29.2 VOL% (42.0-52.0); Immature Granulocytes % 5.7 %; Immature Granulocytes Absolute 0.68 #; Lymphocytes # 1.2 10*3/uL (1.4-4.0); Lymphocytes % 9.9 % (21.2-54.2); Mean Corpuscular HGB Conc 28.4 GM/DL (32-36); Mean Corpuscular Volume 77.5 FL (87-102); Mean Platelet Volume 10.6 FL (9.6-12.0); Monocytes % 3.6 % (1.7-12.7); Neutrophils % 80.2 % (38.7-73.9); Platelet Count 323 T/CUMM (130-400); Red Blood Count 3.77 MC/CUMM (3.8-5.5); Red Cell Distribution Width 19.3 % (9.3-17.3)
[2019-12-02 05:11] LABS: Osmolality,Calculated 288.5 MOS/KG (273-304)
[2019-12-02 05:34] LABS: Hemoglobin 8.4 GM/DL (14.0-18.0)
[2019-12-02 05:43] LABS: Lymphocytes 8 % (20-55); Myelocytes 2 %; Segmented Neutrophils 85 % (50-85); Total Cells Counted 100
[2019-12-02 05:44] LABS: Anisocytosis 1+; Hypochromasia 1+; Microcytosis 1+; Ovalocytes Slight
[2019-12-02 05:45] LABS: Giant Platelets Few; Platelet Estimate Normal
[2019-12-02] MEDS: INSULIN LISPRO 100 UNIT/ML SUBCUT SCH ×2 (09:33→11:59)
[2019-12-02] MEDS: FUROSEMIDE 20 MG TABLET PO SCH (09:34)
[2019-12-02] MEDS: SERTRALINE 25 MG TABLET PO SCH (09:34)
[2019-12-02] MEDS: ASPIRIN CHEW 81 MG TABLET PO SCH (09:34)
[2019-12-02] MEDS: PANTOPRAZOLE 40 MG TABLET PO SCH (09:34)
[2019-12-02] MEDS: AZITHROMYCIN 250 MG TABLET PO SCH (09:34)
[2019-12-02] MEDS: FERROUS SULFATE 325 MG TABLET PO SCH (09:34)
[2019-12-02] MEDS: APIXABAN 2.5 MG TABLET PO SCH (09:34)
[2019-12-02 12:26] VITALS: BP 130/75
[2019-12-02] MEDS ORDERED: DILTIAZEM CD 120 MG CAPSULE PO ONE (13:38)
== END 2019-12-02 15:00 | disposition hospice, home (50) | DRG 308 ==
LOC: EDBD → EDUNIT# → N.ED 23:18 → N.EDINP 11-29 01:45 → SUATTDRO 11-29 01:45 → N.ICU 11-29 02:29 → N.TELEN 11-29 11:30
PROVIDERS: ADMIT Internal Medicine Critical Care Medicine; ATTEND Internal Medicine